=== PATIENT | female | born 1945 | race Caucasian/White ===

== ENCOUNTER → 2021-07-06 10:11 | Outpatient (BNVA) | payer MEDICARE, OTHER, SELFPAY | PROVIDERS: PCP Internal Medicine; Visit Provider Anesthesiology | DX: B02.29 Other postherpetic nervous system involvement (principal); G89.4 Chronic pain syndrome; I12.9 Hypertensive chronic kidney disease with stage 1 through stage 4 chronic kidney disease, or unspecified chronic kidney disease; N18.9 Chronic kidney disease, unspecified; E78.00 Pure hypercholesterolemia, unspecified; I10 Essential (primary) hypertension; E03.9 Hypothyroidism, unspecified; M85.80 Other specified disorders of bone density and structure, unspecified site; Z72.0 Tobacco use | CPT/HCPCS: Q3014 ==

== ENCOUNTER 2022-02-05 15:29 | Outpatient (REF) | payer MEDICARE, OTHER, SELFPAY ==
[2022-02-05 15:45] LABS: MANUAL DIFF FLAG NO
[2022-02-05 16:08] LABS: Basophils Absolute Auto 0.1 X10*3/uL (0.0-0.2); Basophils Percent Auto 1.2 % (0-2); Eosinophils Absolute Auto 0.2 X10*3/uL (0.0-0.4); Eosinophils Percent Auto 3.2 % (0-4); Hematocrit 36.6 % (37.0-47.0); Hemoglobin 11.1 g/dl (12.0-16.0); Imm Gran Abs Auto 0.02 X10*3/uL (0.00-0.03); Imm Gran Pct Auto 0.4 % (0.0-0.4); Lymphocytes Percent Auto 20.6 % (20-40); Mean Corpuscular HGB Conc 30.3 g/dl (31.0-35.0); Mean Corpuscular Hemoglobin 27.2 pg (27.0-33.0); Mean Corpuscular Volume 89.7 fL (80.0-98.0); Mean Platelet Volume 10.5 fL (9.4-12.3); Monocytes Absolute Auto 0.4 X10*3/uL (0.1-1.2); Monocytes Percent Auto 8.8 % (2-11); Neutrophils Absolute Auto 3.3 x10*3/uL (2.0-8.3); Neutrophils Percent Auto 65.8 % (45-73); Platelet Count 230 X10*3/uL (160-400); Red Blood Count 4.08 X10*6/uL (4.20-5.50); Red Cell Distribution Width 15.9 % (11.0-16.0)
[2022-02-05 16:41] LABS: Alanine Aminotransferase 16 U/L (0-31); Albumin Level 4.3 g/dL (3.5-5.0); Alkaline Phosphatase 101 U/L (39-117); Anion Gap 11 (12-20); Aspartate Amino Transferase 19 U/L (5-31); Bilirubin Total 0.3 mg/dL (0.0-1.0); Blood Urea Nitrogen 19 mg/dL (9-16); Calcium 9.7 mg/dL (8.4-10.2); Carbon Dioxide 30 mmol/L (22-29); Chloride 105 mmol/L (96-108); Cholesterol 300 mg/dL; Estimated Glomerular Filt Rate 44; Glucose Random 78 mg/dL (60-115); HDL Cholesterol 93 mg/dL; LDL Cholesterol Calculated 192 mg/dl; Potassium 4.4 mmol/L (3.3-5.1); Sodium 142 mmol/L (135-145); Total Protein 7.6 g/dL (6.5-8.0); Triglycerides 76 mg/dL
[2022-02-05 16:54] LABS: Free T4 (Free Thyroxine) 0.99 ng/dL (0.71-1.85); Thyroid Stimulating Hormone 1.98 uIU/mL (0.32-4.0); Vitamin D 25-OH Total 23.6 ng/mL (>30)
[2022-02-05 17:03] LABS: Folate 16.2 ng/mL (> or = 4.0); Vitamin B12 436 pg/mL (200-900)
== END 2022-02-05 15:30 | disposition home or self-care (01) ==
LOC: HO.LAB 15:29
PROVIDERS: PCP Internal Medicine; Visit Provider Internal Medicine
DX: E03.9 Hypothyroidism, unspecified (principal); E78.00 Pure hypercholesterolemia, unspecified; E55.9 Vitamin D deficiency, unspecified; M81.0 Age-related osteoporosis without current pathological fracture
CPT/HCPCS: 36415; 80053; 80061; 82306; 82607; 82746; 84439; 84443; 85025

== ENCOUNTER 2022-02-24 13:53 | Outpatient (REF) | payer MEDICARE, OTHER, SELFPAY ==
--- NOTE | ~2022-02-24 | MM_ITS ---
EXAMINATION: BONE DENSITOMETRY CLINICAL INDICATION: Age-related osteoporosis without current pathological fracture. COMPARISON: None (current study represents initial baseline exam). TECHNIQUE: Using a LifeBook DXA System (software version: 13.1) manufactured by [employer], dual-energy x-ray absorptiometry was performed of the lumbar spine and right hip. The patient has had a left hip fracture. The images are of good technical quality. Summary results are attached. FINDINGS: AP SPINE L1-L4: BMD 0.684 g/cm2, Z-score -2.0, T-score -4.1, osteoporosis. RIGHT FEMUR, NECK: BMD 0.578 g/cm2, Z-score -1.1, T-score -3.3, osteoporosis. RIGHT FEMUR, TOTAL: BMD 0.548 g/cm2, Z-score -1.6, T-score -3.6, osteoporosis. IDENTIFIED RISK FACTORS: History of adult fracture. Height loss. Anticonvulsant. Hysterectomy. Menopause. HISTORY OF FRACTURE: Femur/hip. MEDICATIONS: Calcium supplement and/or multivitamin. MM/XR DEXA axial skeleton IMPRESSION: 1. DIAGNOSIS: Osteoporosis based on the lowest T-score value of -4.1 in the lumbar spine applying World Health Organization criteria. 2. 10-YEAR FRACTURE RISK PREDICTION, FRAX: According to the guidelines, FRAX calculation should only be performed on patients in the osteopenia bone density category. Therefore, FRAX was not performed on this patient. 3. Treatment Recommendations: NOF guidelines recommend consideration for treatment in postmenopausal women and men age 50 and older presenting with the following: -A hip or vertebral (clinical or morphometric) fracture. -T-score less than or equal to -2.5 at the femoral neck or spine after appropriate evaluation to exclude secondary causes. -Low bone mass at the hip or spine and a 10-year fracture probability by FRAX of greater than or equal to 3% for hip fracture or greater than or equal to 20% for major osteoporotic fracture based on the [place] adapted WHO algorithm. 4. Other Recommendations: All treatment decisions require clinical judgment and consideration of individual patient factors, including patient preferences, comorbidities, previous drug use, risk factors not captured in the FRAX model (e.g. frailty, falls, vitamin D deficiency, increased bone turnover, interval significant decline in bone density) and possible under or overestimation of fracture risk by FRAX. Additional medical evaluation for secondary cause of low bone mineral density may be appropriate. FUTURE SCAN RECOMMENDATION: People with diagnosed cases of osteoporosis or at high risk for fracture should have regular bone mineral density tests. For patients eligible for Medicare, routine testing is allowed once every 2 years. The testing frequency can be increased to one year for patients who have rapidly progressing disease, those who are receiving or discontinuing medical therapy to restore bone mass, or have additional risk factors.
== END 2022-02-24 13:54 | disposition home or self-care (01) ==
LOC: HO.MAMMO 13:53
PROVIDERS: PCP Internal Medicine; Visit Provider Internal Medicine
DX: Z13.820 Encounter for screening for osteoporosis (principal); M81.0 Age-related osteoporosis without current pathological fracture; Z87.891 Personal history of nicotine dependence; Z78.0 Asymptomatic menopausal state
CPT/HCPCS: 77080

== ENCOUNTER 2022-05-14 13:56 | Outpatient (REF) | payer MEDICARE, OTHER, SELFPAY ==
--- NOTE | ~2022-05-14 | CT_ITS ---
EXAMINATION: CT CHEST SCREENING CLINICAL INFORMATION: Former smoker. Quit 4 years ago. 40 pack year history. COMPARISON: None. TECHNIQUE: Multidetector volumetric CT imaging of the chest is performed without contrast using low dose technique. Additional 2D coronal and sagittal reformatted images and axial 3D maximum intensity projection (MIP) images are generated on the CT workstation. This CT examination was performed using dose optimization techniques as appropriate, variously including the following: *Automated exposure control *Adjustment of mA and/or kV according to patient size (this includes techniques or standardized protocols for targeted exams where dose is matched to indication/reason for exam; i.e. extremities or head) *Use of iterative reconstruction technique DLP: 30 mGy-cm FINDINGS: LUNGS: There is biapical pleural and parenchymal scarring. There is evidence of emphysema. There is an ill-defined groundglass attenuation area or clustered areas seen in the left lower lobe. There are several separate adjacent areas. There is a 1 x 1.5 cm area axial image 160 series 5 this extends over a length of 4 cm sagittal reconstructed image 28. There is a 1 cm heterogeneous area with small less than 4 mm solid component sagittal reconstructed image 28 There is a 1 x 1.5 cm heterogeneous area for example sagittal reconstructed image 32. There are numerous small 1 to 2 mm nodules probably related to bronchial soft tissue opacification. No endobronchial or endotracheal lesion is seen. MEDIASTINUM: Coronary artery calcification. The mediastinum is otherwise normal. PLEURA: There is no pleural effusion. No pleural mass or thickening. AXILLA: No lymphadenopathy. UPPER ABDOMEN: Unremarkable OSSEOUS STRUCTURES: There are degenerative changes of the spine. CT/CT lung screening IMPRESSION: Emphysema. Biapical pleural and parenchymal scarring. Clustered groundglass attenuation areas in the left lower lobe. Coronary artery calcification. ASSESSMENT: Lung-RADS category 4A: Suspicious RECOMMENDATION: 3 month low-dose chest CT follow-up recommended.
== END 2022-05-14 13:57 | disposition home or self-care (01) ==
LOC: HO.CT 13:56
PROVIDERS: Visit Provider Physician Assistant Medical
DX: Z12.2 Encounter for screening for malignant neoplasm of respiratory organs (principal); Z87.891 Personal history of nicotine dependence
CPT/HCPCS: 71271; G0296

== ENCOUNTER → 2022-07-14 13:19 | Outpatient (BNVA) | payer MEDICARE, OTHER, SELFPAY | PROVIDERS: PCP Internal Medicine; Visit Provider Anesthesiology | DX: B02.29 Other postherpetic nervous system involvement (principal); G89.4 Chronic pain syndrome | CPT/HCPCS: 99212 ==

== ENCOUNTER 2022-09-15 15:39 | Outpatient (REF) | payer MEDICARE, OTHER, SELFPAY ==
--- NOTE | ~2022-09-15 | CT_ITS ---
EXAMINATION: CT CHEST SCREENING CLINICAL INFORMATION: Follow up multiple ground-glass areas. Smoker. COMPARISON: None. TECHNIQUE: Multidetector volumetric CT imaging of the chest is performed without contrast using low dose technique. Additional 2D coronal and sagittal reformatted images and axial 3D maximum intensity projection (MIP) images are generated on the CT workstation. This CT examination was performed using dose optimization techniques as appropriate, variously including the following: *Automated exposure control *Adjustment of mA and/or kV according to patient size (this includes techniques or standardized protocols for targeted exams where dose is matched to indication/reason for exam; i.e. extremities or head) *Use of iterative reconstruction technique DLP: 46 mGy-cm FINDINGS: LUNGS: Previously seen multiple, ill-defined, ground-glass attenuation areas in the left lower lobe have resolved. There are no pulmonary nodules, mass or consolidation. There is bilateral apical pleural thickening and parenchymal scarring. 2 mm calcified nodule is seen in the left lower lobe axial image 300/6, right middle lobe axial image 320/6, right lower lobe axial image 364/6. No acute pneumonic consolidation is seen. There is centrilobular emphysema. MEDIASTINUM: The thyroid lobes are symmetric and normal. The central trachea and the bronchi are widely patent. The heart size and the great vessels are normal caliber. No abnormal size lymph nodes seen in the mediastinum. Thyroid lobes are symmetrical. CORONARY ARTERY CALCIFICATION: Mild coronary artery calcifications are present. PLEURA: There is no pleural effusion. No pleural mass or thickening. AXILLA: No lymphadenopathy. UPPER ABDOMEN: Visualized liver, spleen, pancreas and bilateral adrenal glands are unremarkable. OSSEOUS STRUCTURES: There is exaggerated thoracic kyphosis and mild scoliosis. No aggressive lytic or sclerotic process is seen. CT/CT lung screen follow up IMPRESSION: 1. Resolution of left lower lobe ground-glass attenuation areas. 2. Small calcified nodules are stable. 3. No abnormal mediastinal or axillary lymphadenopathy. Low-dose annual CT chest. ASSESSMENT: Lung-RADS category 2:Benign. RECOMMENDATION: Low-dose annual CT of the chest.
== END 2022-09-15 15:40 | disposition home or self-care (01) ==
LOC: HO.CT 15:39
PROVIDERS: PCP Internal Medicine; Visit Provider Physician Assistant Medical
DX: Z87.891 Personal history of nicotine dependence (principal)
CPT/HCPCS: 71250

== ENCOUNTER → 2022-10-08 11:01 | Outpatient (BNVA) | payer MEDICARE, OTHER, SELFPAY | PROVIDERS: PCP Internal Medicine; Visit Provider Surgery | DX: R91.8 Other nonspecific abnormal finding of lung field (principal); Z87.891 Personal history of nicotine dependence | CPT/HCPCS: 99202 ==

== ENCOUNTER 2023-03-11 15:43 | Outpatient (REF) | payer MEDICARE, OTHER, SELFPAY ==
--- NOTE | ~2023-03-11 | XR_ITS ---
EXAMINATION: XR SHOULDER, LEFT CLINICAL INFORMATION: Fall one week ago. COMPARISON: None available. TECHNIQUE: Three views of the left shoulder. FINDINGS: There is a transverse comminuted fracture of the distal left clavicle. Fracture approximately 2.5 cm on the distal articular surface of the clavicle. Fracture does not involve the acromioclavicular joint. Fracture is slightly angulated. The glenohumeral joint is normal. XR/XR shoulder LT min 2V IMPRESSION: Transverse comminuted fracture of the distal left clavicle.
[2023-03-11 16:57] LABS: Alanine Aminotransferase 11 U/L (0-31); Albumin Level 4.4 g/dL (3.5-5.0); Alkaline Phosphatase 81 U/L (39-117); Anion Gap 13 (12-20); Aspartate Amino Transferase 18 U/L (5-31); Bilirubin Total 0.4 mg/dL (0.0-1.0); Blood Urea Nitrogen 24 mg/dL (9-16); Calcium 10.5 mg/dL (8.4-10.2); Carbon Dioxide 34 mmol/L (22-29); Chloride 98 mmol/L (96-108); Cholesterol 291 mg/dL; Estimated Glomerular Filt Rate 43; Glucose Random 90 mg/dL (60-115); HDL Cholesterol 98 mg/dL; LDL Cholesterol Calculated 173 mg/dl; Potassium 3.4 mmol/L (3.3-5.1); Sodium 142 mmol/L (135-145); Total Protein 8.2 g/dL (6.5-8.0); Triglycerides 100 mg/dL
[2023-03-11 17:13] LABS: Free T4 (Free Thyroxine) 1.03 ng/dL (0.71-1.85); Thyroid Stimulating Hormone 3.01 uIU/mL (0.32-4.0)
== END 2023-03-11 15:44 | disposition home or self-care (01) ==
LOC: HO.XRAY 15:43
PROVIDERS: PCP Internal Medicine; Visit Provider Internal Medicine
DX: Z13.89 Encounter for screening for other disorder (principal)
CPT/HCPCS: 36415; 73030; 80053; 80061; 84439; 84443

== ENCOUNTER 2023-03-11 16:33 | Emergency (ER) | payer MEDICARE, OTHER, SELFPAY ==
[2023-03-11 16:35] VITALS: BP 112/67; PULSE 75; RESP 18; TEMP 36.6; O2SAT 97; BMI 21.5
--- NOTE | 2023-03-11 17:14 | ED.EXTPRO ---
HPI - Extremity Problem General Chief complaint: Extremity Problem Stated complaint: Referred by doctor Time Seen by Provider: 03/11/23 16:44 History of Present Illness HPI Narrative: patient complains of left shoulder pain for 1 week since a trip and fall where she put out her arm and fell forward hitting her left shoulder and clavicle area on a planting pot, she did not faint and lose consciousness and has no headache no neck pain no numbness no weakness no tingling no loss of muscle strength no dizziness or feeling faint prior no weakness prior Related Data Home Medications Medication Instructions Recorded Confirmed bupropion HCl 300 mg 24 hr tablet, mg PO DAILY 02/15/22 03/11/23 extended release duloxetine 60 mg capsule,delayed mg PO DAILY 02/15/22 03/11/23 release multivitamin 1 tab PO DAILY 02/15/22 03/11/23 quetiapine 25 mg tablet (Seroquel) 25 mg PO BEDTIME 02/15/22 03/11/23 Previous Rx's Medication Instructions Recorded nystatin 100,000 unit/mL oral 1 ml PO TID 7 days #105 mL 02/15/22 suspension gabapentin 300 mg capsule 600 mg PO TID 30 days #180 caps 07/14/22 lidocaine HCl 2 % mucosal solution 1 appl mucous membrane BID PRN 07/15/22 (Lidocaine Viscous) pain #100 mL blood pressure monitor (Blood #1 ea 12/07/22 Pressure Kit) levothyroxine 50 mcg tablet 50 mcg PO DAILY 90 days #90 tabs 12/27/22 hydrochlorothiazide 12.5 mg tablet 12.5 mg PO DAILY #90 tabs 02/16/23 simvastatin 10 mg tablet 10 mg PO BEDTIME #30 tabs 03/11/23 Allergies Allergy/AdvReac Type Severity Reaction Status Date / Time metoclopramide [Reglan] AdvReac Unknown restless Verified 03/11/23 15:02 leg PMFSH Past Medical History Source: nursing notes reviewed Medical History Chronic kidney disease Chronic pain syndrome History of COVID-19 Hypercholesterolemia Hypothyroid Major depression Personal history of nicotine dependence Post herpetic neuralgia Pulmonary nodule Surgical History Colostomy in place (~2007) History of abdominal surgery (~2009) History of hip surgery (~2020) History of hysterectomy (~2005) History of pelvic surgery (~2006) Family History Family History Father No problems noted. Mother No problems noted. Social History Social History Housing: House Alcohol intake: never Patient Tobacco Use Status: Former Tobacco user Quit Date: 2017 Tobacco use type: Cigarette Years Smoked: (onset 31yo, 3/4ppd x 41yrs, 30pyh, quit 2017) e-Cigarette/Vaping Use: Never Used Second Hand Smoke Exposure: No Advance Directives: No Advance Directives Information Provided: No service: No Current occupational status: retired Cognitive needs: No Hearing needs: No Vision needs: Yes Physical Exam Vital Signs: Vital Signs: Last Vital Signs Temp 98 F 03/11/23 16:35 Pulse 75 03/11/23 16:35 Resp 18 03/11/23 16:35 BP 112/67 03/11/23 16:35 Pulse Ox 97 03/11/23 16:35 O2 Del Method Room Air 03/11/23 16:35 BMI result Body Mass Index 21.5 general appearance tearful cooperative no acute distress Head is normocephalic atraumatic Neck is supple nontender Chest wall nontender Extremities the left shoulder the distal clavicle is acutely tender there is no obvious deformity there was no other tenderness around the shoulder chest wall or humerus or elbow, the arm is neurovascular intact distal, full range of motion in elbow wrist and hand, skin was normal no laceration no redness no sign of infection The patient is able to move the left shoulder but it is uncomfortable in the clavicle area Other extremities normal Neuro no focal motor sensory deficits Course Course Course Narrative: x-ray was reviewed and showed a distal clavicle fracture, I did not see any other fracture She is given a sling and will follow with orthopedist Discharge Plan Discharge Clinical Impression: Fracture of left clavicle Patient Disposition: Home, Self-Care Additional Instructions: x-ray showed a broken bone in her clavicle so follow closely with orthopedist Use Tylenol as needed for pain, if you need stronger medication talk to primary care doctor to discuss possible interactions and he will be able to write script for narcotic pain medicine if he feels it is safe Return any time any worse condition or any concerns Prescriptions: No Action levothyroxine 50 mcg tablet 50 mcg PO DAILY 90 Days Qty: 90 0RF hydrochlorothiazide 12.5 mg tablet 12.5 mg PO DAILY Qty: 90 3RF quetiapine [Seroquel] 25 mg tablet 25 mg PO BEDTIME multivitamin Tablet 1 tab PO DAILY nystatin 100,000 unit/mL suspension 1 ml PO TID 7 Days Qty: 105 0RF Rx Instructions: swish and swallow lidocaine HCl [Lidocaine Viscous] 2 % solution 1 appl mucous membrane BID PRN (Reason: pain) Qty: 100 0RF simvastatin 10 mg tablet 10 mg PO BEDTIME Qty: 30 3RF (DME) blood pressure monitor [Blood Pressure Kit] Kit See Rx Instructions .ROUTE .MEDSUPPLY Qty: 1 0RF Rx Instructions: As directed bupropion HCl 300 mg tablet extended release 24 hr PO DAILY duloxetine 60 mg capsule,delayed release(DR/EC) PO DAILY gabapentin 300 mg capsule 600 mg PO TID 30 Days Qty: 180 12RF Referrals: Daniel Jennings MD [Physician] - ( left clavicle fracture)
[2023-03-11 17:23] VITALS: BP 127/69; PULSE 69; RESP 18; TEMP 36.6; O2SAT 99
== END 2023-03-11 17:32 | disposition home or self-care (01) ==
PROVIDERS: Emergency Provider Emergency Medicine Emergency Medical Services; PCP Internal Medicine
DX: S42.032A Displaced fracture of lateral end of left clavicle, initial encounter for closed fracture (principal); W01.198A Fall on same level from slipping, tripping and stumbling with subsequent striking against other object, initial encounter; I10 Essential (primary) hypertension; E78.00 Pure hypercholesterolemia, unspecified; R26.81 Unsteadiness on feet; Z93.3 Colostomy status; Z87.891 Personal history of nicotine dependence; Y93.9 Activity, unspecified; Y92.017 Garden or yard in single-family (private) house as the place of occurrence of the external cause; Y99.9 Unspecified external cause status
CPT/HCPCS: 36415; 73030; 80053; 80061; 84439; 84443; 99284

== ENCOUNTER 2023-03-28 12:05 | Outpatient (REF) | payer MEDICARE, OTHER, SELFPAY | END 2023-03-28 12:06 | disposition home or self-care (01) | LOC: HO.HOSX 12:05 | PROVIDERS: Visit Provider Physician Assistant | DX: Z13.89 Encounter for screening for other disorder (principal) ==

== ENCOUNTER 2023-04-05 10:54 | Outpatient (REF) | payer MEDICARE, OTHER, SELFPAY | END 2023-04-05 10:55 | disposition home or self-care (01) | LOC: HO.HOSX 10:54 | PROVIDERS: Visit Provider Physician Assistant | DX: Z13.89 Encounter for screening for other disorder (principal) ==

== ENCOUNTER 2023-04-13 14:38 | Outpatient (AMB) | payer MEDICARE, OTHER, SELFPAY ==
--- NOTE | 2023-04-13 14:44 | MHC.OFFVIS ---
Intake Vital Signs 04/13/23 14:58 Height 5 ft 4 in Weight 125 lb BMI 21.5 Intake Visit Reasons: FC - left clavicle fx, DOI 03/11/23 Intake Note: Elaine a 77 year old female who presents today for an ER follow up of left clavicle fx. Patient reports a week prior to ER visit on 03/11/23 she put out her arm and fell forward hitting her left shoulder/clavicle area on a planting pot. Currently pain comes with certain movement. Denies numbness or tingling. Limited ROM. Finds little relief with Acetaminophen. Recent fall yesterday while trying to catch her fall she landed on her left hand. She has bruising and pain. Hx of dupuytrens. Patient states a few months ago she had a fall on her right forearm. She states lump never went away and continues to have bruising. Allergies metoclopramide [Reglan] Adverse Reaction (Unknown, Verified 04/13/23 14:59) restless leg HPI FC - left clavicle fx, DOI 03/11/23 HPI Details 77-year-old female who presents to the office today for an ER follow-up of left clavicle injury s/p forward fall and hitting her left shoulder on a planting pot, 03/11/23. She was seen at ER a week after her DOI. She states she has pain and limited ROM in her left clavicle with certain movements. She denies any numbness or tingling. She finds mild relief with acetaminophen. She also reports a recent fall on her left hand yesterday and is now experiencing pain and bruising. She also sustained a fall on her right forearm a few months ago. She continues to have a lump and bruising on her right forearm. She has a history of dupuytrens. [facility], [facility] Medical History Chronic kidney disease Chronic pain syndrome History of COVID-19 Hypercholesterolemia Hypothyroid Major depression Personal history of nicotine dependence Post herpetic neuralgia Pulmonary nodule Surgical History Colostomy in place (~2007) History of abdominal surgery (~2009) History of hip surgery (~2020) History of hysterectomy (~2005) History of pelvic surgery (~2006) Family History Father No problems noted. Mother No problems noted. Social History (Updated 04/13/23 @ 14:52 by STELLA Sheppard) Housing: House Alcohol intake: never Patient Tobacco Use Status: Former Tobacco user Quit Date: 2017 Tobacco use type: Cigarette Years Smoked: (onset 31yo, 3/4ppd x 41yrs, 30pyh, quit 2017) e-Cigarette/Vaping Use: Never Used Second Hand Smoke Exposure: No service: No Current occupational status: retired Current occupation: right hand dominant Cognitive needs: No Hearing needs: No Vision needs: Yes Review of Systems Const All systems reviewed & are unremarkable except as noted in HPI and below Physical Exam Vital Signs: BMI result Body Mass Index 21.5 Extrem Other: Left clavicle: Skin is intact. No skin tenting or skin breakdown. No bony deformity with mild tenderness to palpation over the fracture site. Anterior deltoid sensation is intact. Full ROM of elbow with no pain. No pain along the forearm. Negative squeeze test. No pain along the distal radius. NVI. Left hand normal to inspection, she does have evidence of OA throughout the hand with deviation of all digits. She does have bruising and pain over the dorsum of the hand. No bony deformity. Right forearm hematoma along the ulnar side of the proximal forearm. NVI. Office Procedures Fracture Care Fracture Billing Code: Fracture Billing Code Results Reviewed Results Reviewed: X-rays of the left clavicle obtained in the office today show a non-displaced healing distal clavicle fracture. X-rays of the left hand and right forearm negative for acute fracture or dislocation. Assessment & Plan Assessment & Plan (1) Closed left clavicular fracture: Code(s): S42.002A - Fracture of unspecified part of left clavicle, initial encounter for closed fracture (2) Contusion of left hand: Code(s): S60.222A - Contusion of left hand, initial encounter (3) Traumatic hematoma of right forearm: Code(s): S50.11XA - Contusion of right forearm, initial encounter Plan She will continue to increase activity as tolerated using caution to not overdo any type of overhead reaching or lifting. We will see her back in 6 weeks for the left clavicle with new x-rays, sooner if needed. Based off of radiographical findings there is no evidence of acute fracture or dislocation. It appears that she does have a left-hand contusion from a fall on top of OA. Her right forearm appears to have a hematoma that has solidified. I did encourage warm compresses to the right forearm to see if this helps with her swelling. Orders: Orders XR clavicle LT Today M89.8X1 - Other specified disorders of bone, shoulder Lolita Yang PA-C XR clavicle LT Today M89.8X1 - Other specified disorders of bone, shoulder Angel Luis Cheung PA-C XR forearm RT 2V Today M79.631 - Pain in right forearm Angel Luis Cheung PA-C XR hand LT min 3V Today M79.642 - Pain in left hand Angel Luis Cheung PA-C Patient Instructions: Scribed for Angel Luis Cheung PA-C, by Mehul June medical management trainer, on 04/13/2023 at 2:30 PM EST. IAngel Luis PA-C, have personally reviewed and agree with the information entered by the scribe. Coding Level of Care Code New Pt Level 4 (12596) Diagnoses Closed left clavicular fracture S42.002A Contusion of left hand S60.222A Traumatic hematoma of right forearm S50.11XA CPT Codes Fracture Care - Fracture Billing Code: Fracture Billing Code ([id number])
[2023-04-13 14:58] VITALS: BMI 21.5
== END 2023-04-13 15:22 | disposition home or self-care (01) ==
PROVIDERS: PCP Internal Medicine; Visit Provider Physician Assistant
DX: S42.034D Nondisplaced fracture of lateral end of right clavicle, subsequent encounter for fracture with routine healing (principal); S60.222A Contusion of left hand, initial encounter; S50.11XA Contusion of right forearm, initial encounter
CPT/HCPCS: 99204

== ENCOUNTER 2023-04-13 15:01 | Outpatient (REF) | payer MEDICARE, OTHER, SELFPAY ==
--- NOTE | ~2023-04-13 | XR_ITS ---
EXAMINATION: XR HAND, LEFT CLINICAL INFORMATION: Pain in left hand COMPARISON: None available. TECHNIQUE: PA, lateral, and oblique views of the left hand. FINDINGS: The bones are intact. No fracture. There is ulnar deviation of the second through fifth fingers. Negative ulnar variance. There is degenerative change of carpometacarpal joint of second metacarpal. No erosions or soft tissue calcifications. XR/XR hand LT min 3V IMPRESSION: 1. No acute bony abnormality. 2. Degenerative change of the carpometacarpal joint of the second metacarpal.
--- NOTE | ~2023-04-13 | XR_ITS ---
EXAMINATION: XR CLAVICLE, LEFT CLINICAL INFORMATION: Other specified disorders of bone, shoulder COMPARISON: Left shoulder 03/11/2023 TECHNIQUE: PA and tangential views of the left clavicle. FINDINGS: Again noted is a transverse comminuted fracture with slight angulation of the distal left clavicle. There is no change in position or alignment of the fracture fragments. The fracture cleft is blurred. There is mild callus formation. Acromioclavicular joint alignment is anatomic. XR/XR clavicle LT IMPRESSION: Healing left clavicular fracture.
--- NOTE | ~2023-04-13 | XR_ITS ---
EXAMINATION: XR FOREARM, RIGHT CLINICAL INFORMATION: Pain of right forearm COMPARISON: None available. TECHNIQUE: AP and lateral views of the right forearm were obtained. FINDINGS: The bones are diffusely demineralized. The bones are intact. No fracture. Imaged portions of the elbow and wrist are unremarkable. XR/XR forearm RT 2V IMPRESSION: No acute bony abnormality.
== END 2023-04-13 15:02 | disposition home or self-care (01) ==
LOC: HO.HOSX 15:01
PROVIDERS: Visit Provider Physician Assistant
DX: S42.002A Fracture of unspecified part of left clavicle, initial encounter for closed fracture (principal); S60.222A Contusion of left hand, initial encounter; S50.11XA Contusion of right forearm, initial encounter
CPT/HCPCS: 73000; 73090; 73130; 99202

== ENCOUNTER 2023-05-26 10:49 | Outpatient (REF) | payer MEDICARE, OTHER, SELFPAY | END 2023-05-26 10:50 | disposition home or self-care (01) | LOC: HO.HOSX 10:49 | PROVIDERS: Visit Provider Physician Assistant | DX: Z13.89 Encounter for screening for other disorder (principal) ==

== ENCOUNTER 2023-06-21 15:25 | Outpatient (AMB) | payer MEDICARE, OTHER, SELFPAY ==
[2023-06-21 15:31] VITALS: BP 110/66; PULSE 74; O2SAT 96; BMI 22.8
--- NOTE | 2023-06-21 15:31 | MHC.PC.OV ---
Vital Signs 06/21/23 15:31 Height 5 ft 4 in Weight 133 lb BMI 22.8 BP 110/66 Blood Pressure Location Lt brachial Position Sitting Pulse 74 Pulse Source Pulse Oximeter Pulse Oximetry (%) 96 Oxygen Delivery Method Room Air Intake Visit Reasons: hypothyroid and hypercholesterol Allergies simvastatin Adverse Reaction (Intermediate, Unverified 06/21/23 15:51) Stomach Upset metoclopramide [Reglan] Adverse Reaction (Unknown, Verified 06/21/23 15:35) restless leg Tobacco use date assessed: 12/07/22 Dental Screening Dental Screen Date: 06/21/23 Did you have a dental visit in the last 12 months?: Yes Did you have a dental problem in the last 6 months where you did not have access to dental care?: No Was dental information given to patient?: Patient has dentist HPI hypothyroid and hypercholesterol HPI Details 78-year-old female with a history of hypertension coronary artery disease hypercholesterolemia hypothyroidism and major depression last seen February 2023. Review of the notes had x-rays of left clavicle showing healing left clavicular fracture left hand showing arthritis and right forearm that is unremarkable. Patient did have a fall March 11 sustaining the clavicular fracture. Patient did have blood work in November 2022 then a follow-up in February 2023. Thyroid blood work became normal. showing hypothyroidism and hypercholesterolemia and a gait instability and the arthritis patient had been fill out a handicap placard. Patient does walk with a cane. Patient has a high cholesterol and was placed on simvastatin but patient tells me now that she can take it. [facility]LY [facility] Medical History Chronic kidney disease Chronic pain syndrome History of COVID-19 Hypercholesterolemia Hypothyroid Major depression Personal history of nicotine dependence Post herpetic neuralgia Pulmonary nodule Surgical History Colostomy in place (~2007) History of abdominal surgery (~2009) History of hip surgery (~2020) History of hysterectomy (~2005) History of pelvic surgery (~2006) Family History Father No problems noted. Mother No problems noted. Social History (Updated 04/13/23 @ 14:52 by So F Flo, RMA) Housing: House Alcohol intake: never Patient Tobacco Use Status: Former Tobacco user Quit Date: 2017 Tobacco use type: Cigarette Years Smoked: (onset 31yo, 3/4ppd x 41yrs, 30pyh, quit 2017) e-Cigarette/Vaping Use: Never Used Second Hand Smoke Exposure: No service: No Current occupational status: retired Current occupation: right hand dominant Cognitive needs: No Hearing needs: No Vision needs: Yes Questionnaire PHQ-9 Over the last 2 weeks, how often have you been bothered by any of the following problems? 1. Little interest or pleasure in doing things: not at all 2. Feeling down, depressed, or hopeless: not at all 3. Trouble falling or staying asleep, or sleeping too much: not at all 4. Feeling tired or having little energy: not at all 5. Poor appetite or overeating: not at all 6. Feeling bad about yourself - or that you are a failure or have let yourself or your family down: not at all 7. Trouble concentrating on things, such as reading the newspaper or watching television: not at all 8. Moving or speaking so slowly that other people could have noticed. Or the opposite - being so fidgety or restless that you have been moving around a lot more than usual: not at all 9. Thoughts that you would be better off or of hurting yourself in some way: not at all Total score: 0 Depression Screening Interpretation: Negative Depression Screening Done: Yes Source: Developed by Drs. Pierce Miranda, Cherie Muñiz, Singh Goins and colleagues, with an educational barrington from [employer]. Thrive Questionnaire Date Thrive assessed: 12/07/22 I am a: Patient What is your living situation today?: I have a steady place to live Within the past 12 months, did the food you bought not last and you didn't have the money to get more?: Never true Within the past 12 months, did you worry whether your food would run out before you got money to buy more?: Never true AUDIT C Alcohol Use Questionnaire (AUDIT-C) 1. How often do you have a drink containing alcohol?: Never 3. How often do you have six or more drinks on one occasion?: Never Total Score: 0 MANJU-7 AMB Questionnaire MANJU-7 Date MANJU - 7 assessed: 12/07/22 Feeling nervous, anxious, or on edge: 0 = Not at all Not being able to stop or control worryin = Not at all Worrying too much about different things: 0 = Not at all Trouble relaxin = Not at all Being so restless that it is hard to sit still: 0 = Not at all Becoming easily annoyed or irritable: 0 = Not at all Feeling afraid as if something awful might happen: 0 = Not at all Total MANJU-7 score (0-4 normal; 5-9 mild; 10-14 moderate; 15-21 severe): 0 Source: Developed by Drs. Pierce Miranda, Cherie Muñiz, Singh Goins and colleagues, with an educational barrington from [employer]. Physical exam (Primary Care) Tobacco/Smoking Status: Tobacco use Status Tobacco use date assessed 12/07/22 03/11/23 14:57 Patient Tobacco Use Status Former Tobacco user 04/13/23 14:52 Tobacco use type Cigarette 04/13/23 14:52 e-Cigarette/Vaping Use Never Used 04/13/23 14:52 Depression Screening Interpretation: Negative Thrive Assessment: Date of Thrive Assessment Date Thrive assessed 12/07/22 03/11/23 14:57 Assessment and Plan Assessment & Plan (1) Closed left clavicular fracture: Comment: February 2020 Code(s): S42.002A - Fracture of unspecified part of left clavicle, initial encounter for closed fracture Plan: Patient follows up with orthopedic had another fall recently but no acute fracture (2) Osteoporosis: Code(s): M81.0 - Age-related osteoporosis without current pathological fracture Plan: Discussed about treatment, calcium and vitamin (3) CAD (coronary artery disease): Code(s): I25.10 - Atherosclerotic heart disease of [place] coronary artery without angina pectoris Plan: Control the cholesterol, weight, blood pressure (4) Hypercholesterolemia: Code(s): E78.00 - Pure hypercholesterolemia, unspecified Plan: Avoid fried foods, chicken skin, eggs, butter margarine, pastries and meat. Be it pork or beef they have a lot of cholesterol LDL goal of less than 70 and triglyceride of less than 150 March blood work showing very high LDL. Will start on cholesterol medication (5) Hypothyroid: Code(s): E03.9 - Hypothyroidism, unspecified Qualifiers: Hypothyroidism type: unspecified Qualified Code(s): E03.9 - Hypothyroidism, unspecified Plan: Last blood work was in November showing a very high TSH but February repeat blood test was normal (6) Major depression: Comment: February 2012, Elsa Bean Monthly Code(s): F32.9 - Major depressive disorder, single episode, unspecified Plan: Continue with counseling and therapy Orders: Orders Lipid Panel 3 Months E78.00 - Pure hypercholesterolemia, unspecified Comprehensive Met. Panel 3 Months E78.00 - Pure hypercholesterolemia, unspecified Medications: New rosuvastatin 5 mg PO DAILY 30 tabs 2RF E78.00 - Pure hypercholesterolemia, unspecified Coding Level of Care Code Est Pt Level 4 (03616) Diagnoses Closed left clavicular fracture S42.002A Osteoporosis M81.0 CAD (coronary artery disease) I25.10 Hypercholesterolemia E78.00 Hypothyroidism, unspecified type E03.9 Hypothyroidism type: unspecified Major depression F32.9
== END 2023-06-21 16:04 | disposition home or self-care (01) ==
PROVIDERS: PCP Internal Medicine; Visit Provider Internal Medicine
DX: S42.002A Fracture of unspecified part of left clavicle, initial encounter for closed fracture (principal); M81.0 Age-related osteoporosis without current pathological fracture; I25.10 Atherosclerotic heart disease of native coronary artery without angina pectoris; Z93.3 Colostomy status; E78.00 Pure hypercholesterolemia, unspecified; E03.9 Hypothyroidism, unspecified; F32.9 Major depressive disorder, single episode, unspecified
CPT/HCPCS: 99214

== ENCOUNTER 2023-07-25 14:39 | Outpatient (AMB) | payer MEDICARE, OTHER, SELFPAY ==
--- NOTE | 2023-07-25 14:42 | MHC.OFFVIS ---
Intake Vital Signs 07/25/23 14:49 Height 5 ft 4 in Weight 130 lb BMI 22.3 BP 131/74 Blood Pressure Location Lt brachial Position Sitting Respiration 14 Pulse 79 Pulse Source Pulse Oximeter Pulse Oximetry (%) 97 Oxygen Delivery Method Room Air Intake Visit Reasons: Gabapentin Discussion Allergies simvastatin Adverse Reaction (Intermediate, Verified 07/25/23 14:50) Stomach Upset metoclopramide [Reglan] Adverse Reaction (Unknown, Verified 07/25/23 14:50) restless leg HPI HPI Comments History of Present Illness Details Elaine is back in my office with r requests to restart gabapentin. She was absent for yet another 1 year. She was given refill for 11 months last time. She denies side effects of the gabapentin. She was informed that she can renew her gabapentin next time with primary care physician. This time I will refill her gabapentin with 11 refills. Prior: Original appointment 3 years ago with complains on post herpetic neuralgia.? She complains on pain in lumbar spine spreading into the lateral hip anterior he and in her hip left medial surface of the leg and medial inferior surface of the foot and into the large toe.? She? was treated with multiple medications including Lyrica and antiviral medications.? Valtrex. She did not like Lyrica, she completed the full course of of antiviral medications without any success.? She did not like the Lyrica because of the side effects.? Attempt was made to treat her pain with L2-L3-L3-L4 L4-5 transforaminal epidural steroid injection on the left which did not result in any improvement.? We started her on gabapentin and gabapentin is taking edge of of his her pain.? She is on the telephone today requesting me to renew prescription of gabapentin for her. I offered this patient to consider spinal cord stimulation as the mode of treatment her pain.? She is not interested [facility] Medical History Pulmonary nodule History of COVID-19 Personal history of nicotine dependence Chronic pain syndrome Post herpetic neuralgia Hypothyroid Hypercholesterolemia Chronic kidney disease Major depression Surgical History History of abdominal surgery (~2009) History of hysterectomy (~2005) History of hip surgery (~2020) Colostomy in place (~2007) History of pelvic surgery (~2006) Family History Father No problems noted. Mother No problems noted. Social History Housing: House Alcohol intake: never Patient Tobacco Use Status: Former Tobacco user Quit Date: 2017 Tobacco use type: Cigarette Years Smoked: (onset 31yo, 3/4ppd x 41yrs, 30pyh, quit 2017) e-Cigarette/Vaping Use: Never Used Second Hand Smoke Exposure: No service: No Current occupational status: retired Current occupation: right hand dominant Cognitive needs: No Hearing needs: No Vision needs: Yes Review of Systems Const All systems reviewed & are unremarkable except as noted in HPI and below ENT Reports Normal hearing present Neuro Reports Normal hearing present and Denies Sensory deficit (Neuro) Physical Exam Const General: comfortable and no acute distress Chest Chest palpation & inspection: normal inspection of the chest Resp Effort & Inspection: normal respiratory effort and able to speak in complete sentences Cardio Jugular venous distension: no JVD Neuro Cranial nerves: Yes Normal hearing present Sensory Exam: No Sensory deficit (Neuro) Extrem General: Yes normal to inspection and Yes full ROM Assessment & Plan Assessment & Plan (1) Post herpetic neuralgia: Code(s): B02.29 - Other postherpetic nervous system involvement (2) Chronic pain syndrome: Code(s): G89.4 - Chronic pain syndrome Plan Severe long lasting post herpetic neuralgia gabapentin is helpful for her pain . Spinal cord stimulation [employer] was offered to this patient in the attempt to alleviate her pain. She does not want to. I will continue her gabapentin 600 mg t.i.d. she was taking 2 pills 300 mg 3 times a day with 11 refills. Her primary care physician can refill gabapentin for her next time in 1 year. Medications: Refilled gabapentin 600 mg (2 x 300 mg) PO TID 180 caps 12RF 30 days Coding Level of Care Code Est Pt Level 3 (52912) Diagnoses Post herpetic neuralgia B02.29 Chronic pain syndrome G89.4
[2023-07-25 14:49] VITALS: BP 131/74; PULSE 79; RESP 14; O2SAT 97; BMI 22.3
== END 2023-07-25 14:54 | disposition home or self-care (01) ==
PROVIDERS: PCP Internal Medicine; Visit Provider Anesthesiology
DX: B02.29 Other postherpetic nervous system involvement (principal); G89.4 Chronic pain syndrome
CPT/HCPCS: 99213

== ENCOUNTER → 2023-07-25 14:39 | Outpatient (BNVA) | payer MEDICARE, OTHER, SELFPAY | PROVIDERS: PCP Internal Medicine; Visit Provider Anesthesiology | DX: B02.29 Other postherpetic nervous system involvement (principal); G89.4 Chronic pain syndrome | CPT/HCPCS: 99212 ==

== ENCOUNTER 2023-09-15 14:23 | Outpatient (REF) | payer MEDICARE, OTHER, SELFPAY ==
--- NOTE | ~2023-09-15 | CT_ITS ---
EXAMINATION: CT CHEST SCREENING CLINICAL INFORMATION: Nicotine dependence. 45 pack years. Quit 4 years ago. COMPARISON: CT chest 09/15/2022. TECHNIQUE: Multidetector volumetric CT imaging of the chest is performed without contrast using low dose technique. Additional 2D coronal and sagittal reformatted images and axial 3D maximum intensity projection (MIP) images are generated on the CT workstation. This CT examination was performed using dose optimization techniques as appropriate, variously including the following: *Automated exposure control *Adjustment of mA and/or kV according to patient size (this includes techniques or standardized protocols for targeted exams where dose is matched to indication/reason for exam; i.e. extremities or head) *Use of iterative reconstruction technique DLP: 34 mGy-cm FINDINGS: LUNGS: The lungs are hyperinflated with no pulmonary nodule, mass or ground-glass density seen. No acute pneumonic process seen. MEDIASTINUM: Thyroid lobes are symmetric and normal. The central trachea and bronchi are widely patent. Heart size and the great vessels are normal caliber. No abnormal size mediastinal or hilar lymph nodes seen. CORONARY ARTERY CALCIFICATION: Mild coronary artery calcification is present. PLEURA: There is bilateral apical pleural thickening and parenchymal scarring. AXILLA: No lymphadenopathy. UPPER ABDOMEN: Visualized liver, spleen, pancreas are unremarkable. OSSEOUS STRUCTURES: No aggressive lytic or sclerotic process. CT/CT lung screening IMPRESSION: 1. Hyperinflated lungs with no pulmonary nodule, mass or ground-glass density. 2. Bilateral apical pleural thickening and parenchymal scarring. ASSESSMENT: Lung-RADS category 1: Negative RECOMMENDATION: Low-dose annual CT chest.
== END 2023-09-15 14:24 | disposition home or self-care (01) ==
LOC: HO.CT 14:23
PROVIDERS: PCP Internal Medicine; Visit Provider Physician Assistant Medical
DX: Z12.2 Encounter for screening for malignant neoplasm of respiratory organs (principal); Z87.891 Personal history of nicotine dependence
CPT/HCPCS: 71271

== ENCOUNTER 2024-03-22 13:59 | Outpatient (AMB) | payer MEDICARE, OTHER, SELFPAY ==
[2024-03-22 14:01] VITALS: BP 114/70; PULSE 87; O2SAT 100
--- NOTE | 2024-03-22 14:01 | A.OFFPC_ITS ---
Vital Signs 03/22/24 14:01 Height 5 ft 4 in Weight 116 lb 6.465 oz BMI 20.0 BP 114/70 Blood Pressure Location Rt brachial Position Sitting Pulse 87 Pulse Source Pulse Oximeter Pulse Oximetry (%) 100 Oxygen Delivery Method Room Air Intake Visit Reasons: 7.8 Discharge [facility] Intake Note: Patient is here for hospital discharge follow up. Patient was discharged from [facility] rehab on 03/19/2024 Allergies simvastatin Adverse Reaction (Intermediate, Verified 03/22/24 14:07) Stomach Upset metoclopramide [Reglan] Adverse Reaction (Unknown, Verified 03/22/24 14:07) restless leg Medication List - Last Reconciled 03/22/24 by Augie Mckeon MD blood pressure monitor (Blood Pressure Kit) As directed bupropion HCl 75 mg PO BID duloxetine mg PO DAILY gabapentin 600 mg (2 x 300 mg) PO TID 30 days hydrochlorothiazide 12.5 mg PO DAILY levothyroxine 50 mcg PO DAILY 90 days lidocaine HCl 2% (Lidocaine Viscous) 1 appl mucous membrane BID PRN multivitamin 1 tab PO DAILY nystatin 1 appl topical BID quetiapine (Seroquel) 25 mg PO BEDTIME venlafaxine 50 mg PO BID Tobacco use date assessed: 03/22/24 Fall risk assessment: No Falls in past year Last assessed Fall Risk: 03/22/24 Dental Screening Dental Screen Date: 03/22/24 HPI 7.8 Discharge [facility] HPI Details 78-year-old female with a history of ost eoporosis coronary artery disease hypercholesterolemia hypothyroidism and major depression last seen in June 2023 patient had left clavicular fracture. Patient's last bone density was done in 02/2022 review of the notes has seen pain management in July has gabapentin for post herpetic neuralgia attempts were made for the lumbar transforaminal epidural steroid injections which did not result in any improvement. Offered spinal cord stimulation but declined gabapentin continued on 600 mg 3 times a day patient also had CT scan done of the chest in 10/01/2023 showing bilateral apical pleural thickening and parenchymal scarring with hyperinflated lungs no nodule. Annual CT recommended.. Blood work noted in January anemia to 8.8 and 27.7 hemoglobin hematocrit. WBC of 15 hyponatremia to 131 elevated liver functions to 55 and 48. 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 PAtient brought in papers but no list of med. wants duloxetine in place of effexor- papers for ramp needed also. PAtient has ag tube but is being fed by mouth. PAtient is planned to have radiation and so kept on g tube. went home tuesday and states nothing has been sent up. [facility] Medical History (Updated 03/22/24 @ 14:51 by Augie Mckeon MD) Pulmonary nodule History of COVID-19 Personal history of nicotine dependence Chronic pain syndrome Post herpetic neuralgia Hypothyroid Hypercholesterolemia Chronic kidney disease Major depression Surgical History History of abdominal surgery (~2009) History of hysterectomy (~2005) History of hip surgery (~2020) Colostomy in place (~2007) History of pelvic surgery (~2006) Family History Father No problems noted. Mother No problems noted. Social History Housing: House Alcohol intake: never Patient Tobacco Use Status: Former Tobacco user Tobacco use type: Cigarette Years Smoked: (onset 31yo, 3/4ppd x 41yrs, 30pyh, quit 2017) e-Cigarette/Vaping Use: Never Used Second Hand Smoke Exposure: No service: No Current occupational status: retired Current occupation: right hand dominant Cognitive needs: No Hearing needs: No Vision needs: Yes Questionnaire Thrive Questionnaire Date Thrive assessed: 12/07/22 AUDIT C Alcohol Use Questionnaire (AUDIT-C) 1. How often do you have a drink containing alcohol?: Never 3. How often do you have six or more drinks on one occasion?: Never Total Score: 0 MANJU-7 AMB Questionnaire MANJU-7 Date MANJU - 7 assessed: 12/07/22 Source: Developed by Drs. Pierce Miranda, Cherie Muñiz, Singh Goins and colleagues, with an educational barrington from [employer]. Physical exam (Primary Care) Vital Signs: Last Vital Signs Pulse 87 03/22/24 14:01 BP 114/70 03/22/24 14:01 Pulse Ox 100 03/22/24 14:01 Oxygen Delivery Method Room Air 03/22/24 14:01 BMI result Body Mass Index 20.0 Tobacco/Smoking Status: Tobacco use Status Tobacco use date assessed 03/22/24 03/22/24 14:10 Patient Tobacco Use Status Former Tobacco user 03/22/24 14:01 Tobacco use type Cigarette 03/22/24 14:01 e-Cigarette/Vaping Use Never Used 03/22/24 14:01 Thrive Assessment: Date of Thrive Assessment Date Thrive assessed 12/07/22 03/22/24 14:01 Const Other: incisional scar r angle of the mouth mild redness, L leg weakness , Tongue cannot protrude out with whitish lesion l side General: alert; No acute distress Eyes Conjunctivae: conjunctivae normal Resp Auscultation: clear to auscultation bilaterally Cardio Rate: regular rate Rhythm: regular rhythm Extrem General: Yes normal to inspection and No edema Assessment and Plan Assessment & Plan (1) Tongue cancer: Comment: January 2024invasive moderately differentiated squamous cell carcinoma with ulceration suggestive HPV association status post glossectomy with neck flap Code(s): C02.9 - Malignant neoplasm of tongue, unspecified Plan: Patient continues to follow-up with Hematology-Oncology (2) CAD (coronary artery disease): Code(s): I25.10 - Atherosclerotic heart disease of [place] coronary artery without angina pectoris Plan: Control the cholesterol, weight, blood pressure (3) Colostomy in place: Onset Date: ~2007 Comment: (Dr. Teri Mcginnis - from fecal impaction - 2007) Code(s): Z93.3 - Colostomy status (4) Hypothyroid: Code(s): E03.9 - Hypothyroidism, unspecified Qualifiers: Hypothyroidism type: unspecified Qualified Code(s): E03.9 - Hypothyroidism, unspecified Plan: Continue with thyroid medication (5) Major depression: Comment: February 2012, Elsa Bean Monthly Code(s): F32.9 - Major depressive disorder, single episode, unspecified Plan: On duloxetine and bupropion continue with counseling and therapy (6) Post herpetic neuralgia: Code(s): B02.29 - Other postherpetic nervous system involvement Plan: Continue with gabapentin (7) Gastrojejunal tube present: Code(s): Z93.1 - Gastrostomy status Orders: Orders Comprehensive Met. Panel Today I25.10 - Atherosclerotic heart disease of [place] coronary artery without angina pectoris Vitamin B12 and Folate Today I25.10 - Atherosclerotic heart disease of [place] coronary artery without angina pectoris Vitamin D 25-OH Total Today I25.10 - Atherosclerotic heart disease of [place] coronary artery without angina pectoris Complete Blood Count Auto Diff Today I25.10 - Atherosclerotic heart disease of [place] coronary artery without angina pectoris Free T4 (Free Thyroxine) Today I25.10 - Atherosclerotic heart disease of [place] coronary artery without angina pectoris Thyroid Stimulating Hormone Today I25.10 - Atherosclerotic heart disease of [place] coronary artery without angina pectoris Lipid Panel Today E78.00 - Pure hypercholesterolemia, unspecified, I25.10 - Atherosclerotic heart disease of [place] coronary artery without angina pectoris Medications: New transparent dressings (Tegaderm Frame Style) As directed 100 ea 1RF Z93.1 - Gastrostomy status Changed From duloxetine PO DAILY F32.9 - Major depressive disorder, single episode, unspecified To duloxetine 60 mg PO DAILY 30 days 30 caps 3RF F32.9 - Major depressive disorder, single episode, unspecified Coding Level of Care Code Est Pt Level 4 (63878) Diagnoses Tongue cancer C02.9 CAD (coronary artery disease) I25.[address] Z93.3 Hypothyroidism, unspecified type E03.9 Hypothyroidism type: unspecified Major depression F32.9 Post herpetic neuralgia B02.29 Gastrojejunal tube present Z93.1
== END 2024-03-22 15:07 | disposition home or self-care (01) ==
PROVIDERS: PCP Internal Medicine; Visit Provider Internal Medicine
DX: C02.9 Malignant neoplasm of tongue, unspecified (principal); Z93.3 Colostomy status; Z93.1 Gastrostomy status; F32.9 Major depressive disorder, single episode, unspecified; I25.10 Atherosclerotic heart disease of native coronary artery without angina pectoris; E03.9 Hypothyroidism, unspecified; B02.29 Other postherpetic nervous system involvement
CPT/HCPCS: 99214

== ENCOUNTER 2024-08-03 15:54 | Outpatient (AMB) | payer MEDICARE, OTHER, SELFPAY ==
[2024-08-03 15:55] VITALS: BP 130/82; PULSE 68; O2SAT 97; BMI 22.1
--- NOTE | 2024-08-03 15:55 | MHC.PC.OV ---
Vital Signs 08/03/24 15:55 Height 5 ft 4 in Weight 129 lb 0.4 oz BMI 22.1 BP 130/82 Blood Pressure Location Lt brachial Position Sitting Pulse 68 Pulse Source Pulse Oximeter Pulse Oximetry (%) 97 Oxygen Delivery Method Room Air Intake Visit Reasons: extreme tiredness Allergies simvastatin Adverse Reaction (Intermediate, Verified 08/03/24 15:55) Stomach Upset metoclopramide [Reglan] Adverse Reaction (Unknown, Verified 08/03/24 15:55) restless leg Medication List - Last Reconciled 08/03/24 by Augie Mckeon MD blood pressure monitor (Blood Pressure Kit) As directed duloxetine 60 mg PO DAILY 30 days [FINGER SPLINTS 3rd, 4th and 5th flexion contractures] gabapentin 600 mg (2 x 300 mg) PO TID 30 days hydroxyzine HCl 25 mg PO BEDTIME levothyroxine 50 mcg PO DAILY 90 days lidocaine HCl 2% (Lidocaine Viscous) 1 appl mucous membrane BID PRN nystatin 1 appl topical BID nystatin 5 mL PO TID 7 days transparent dressings (Tegaderm Frame Style) As directed Tobacco use date assessed: 03/22/24 Fall risk assessment: No Falls in past year Last assessed Fall Risk: 08/03/24 Dental Screening Dental Screen Date: 03/22/24 HPI extreme tiredness HPI Details 79-year-old female with a history of tongue cancer status post right partial glossectomy treatment, coronary artery disease hypothyroidism major depression with G-tube present and colostomy in place. Coming in for follow-up. Last seen in 03/31/2024. Review of the notes in June. [facility]. Patient comes in feeling very weak. Patient is eating by mouth pureed diet but has the boost and ensure. still has the colostomy. feels tired and sleepy. Patient also complains of a lot leg pain on the left side with the shingles developed a post herpetic neuralgia. Patient has been going to the pain management and has recommended a procedure in which the patient declined. Patient has been sent to me to refill the gabapentin. Patient also has the depression problem that they have mentioned that it is not working. Patient is being followed up by psychiatrist. Discussed that with the Cymbalta if it is not working would like to take that off but Cymbalta helps with pain, post herpetic neuralgia and depression. Discussed that we can take it off if it is not helping but would rather have the psychiatrist take care of the depression part. Advised continue with medication. As for the pain post herpetic neuralgia discussed that gabapentin is helpful and that she has tried pregabalin before which did not help. Discussed that we can decrease the gabapentin in the morning to 300 mg noon time 300 mg and at nighttime 600 mg to try to see if that helps her with her sleepiness during the daytime. As for pain management discussed that this would be a better help if the pain is not getting under control but she has to understand that in reality we would never get rid of the pain but would get it manage only. As for the tiredness all day long advised to get blood work as the last blood work that I had was in January showing severe anemia. [facility] [place] Medical History (Updated 08/03/24 @ 16:47 by Augie Mckeon MD) Pulmonary nodule History of COVID-19 Personal history of nicotine dependence Chronic pain syndrome Post herpetic neuralgia Hypothyroid Hypercholesterolemia Chronic kidney disease Major depression Surgical History History of abdominal surgery (~2009) History of hysterectomy (~2005) History of hip surgery (~2020) Colostomy in place (~2007) History of pelvic surgery (~2006) Family History Father No problems noted. Mother No problems noted. Social History Housing: House Alcohol intake: never Patient Tobacco Use Status: Former Tobacco user Tobacco use type: Cigarette Years Smoked: (onset 31yo, 3/4ppd x 41yrs, 30pyh, quit 2018) e-Cigarette/Vaping Use: Never Used Second Hand Smoke Exposure: No service: No Current occupational status: retired Current occupation: right hand dominant Cognitive needs: No Hearing needs: No Vision needs: Yes Questionnaire Thrive Questionnaire Date Thrive assessed: 12/07/22 AUDIT C Alcohol Use Questionnaire (AUDIT-C) 1. How often do you have a drink containing alcohol?: Never 3. How often do you have six or more drinks on one occasion?: Never Total Score: 0 MANJU-7 AMB Questionnaire MANJU-7 Date MANJU - 7 assessed: 12/07/22 Source: Developed by Drs. Pierce Miranda, Cherie Muñiz, Singh Goins and colleagues, with an educational barrington from [employer]. Physical exam (Primary Care) Vital Signs: Last Vital Signs Pulse 68 08/03/24 15:55 BP 130/82 08/03/24 15:55 Pulse Ox 97 08/03/24 15:55 Oxygen Delivery Method Room Air 08/03/24 15:55 BMI result Body Mass Index 22.1 Tobacco/Smoking Status: Tobacco use Status Tobacco use date assessed 03/22/24 08/03/24 16:11 Patient Tobacco Use Status Former Tobacco user 08/03/24 16:11 Tobacco use type Cigarette 08/03/24 16:11 e-Cigarette/Vaping Use Never Used 08/03/24 16:11 Thrive Assessment: Date of Thrive Assessment Date Thrive assessed 12/07/22 08/03/24 16:11 Const General: alert; No acute distress Eyes Conjunctivae: conjunctivae normal Resp Auscultation: clear to auscultation bilaterally Cardio Rate: regular rate Rhythm: regular rhythm GI Inspection: Yes normal to inspection Extrem General: Yes normal to inspection and No edema Coding Level of Care Code Est Pt Level 4 (18745) Diagnoses Tongue cancer C02.9 Gastrojejunal tube present Z93.1 Primary hypertension I10 Hypertension type: primary hypertension Coronary artery disease involving [place] coronary artery of [place] heart without angina pectoris I25.10 Coronary Disease-Associated Artery/Lesion type: [place] artery [place] vs. 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 (2) Gastrojejunal tube present: Code(s): Z93.1 - Gastrostomy status Category: Medical Plan: Patient is eating by mouth with ground food but supplements with ensure/boost (3) Hypertension: Code(s): I10 - Essential (primary) hypertension Category: Medical Qualifiers: Hypertension type: primary hypertension Qualified Code(s): I10 - Essential (primary) hypertension Plan: Continue with blood pressure medication. Decrease salt intake and exercise on hydrochlorothiazide 12.5 mg once a day (4) CAD (coronary artery disease): Code(s): I25.10 - Atherosclerotic heart disease of [place] coronary artery without angina pectoris Category: Medical Qualifiers: Coronary Disease-Associated Artery/Lesion type: [place] artery [place] vs. transplanted heart: [place] heart Associated angina: without angina Qualified Code(s): I25.10 - Atherosclerotic heart disease of [place] coronary artery without angina pectoris Plan: Control the cholesterol, weight, blood pressure, diabetes (5) Hypercholesterolemia: Code(s): E78.00 - Pure hypercholesterolemia, unspecified Category: Medical Plan: Avoid fried foods, chicken skin, eggs, butter margarine, pastries and meat. Be it pork or beef they have a lot of cholesterol (6) Hypothyroid: Code(s): E03.9 - Hypothyroidism, unspecified Category: Medical Qualifiers: Hypothyroidism type: unspecified Qualified Code(s): E03.9 - Hypothyroidism, unspecified Plan: Continue with thyroid medication but will need blood testing (7) Post herpetic neuralgia: Code(s): B02.29 - Other postherpetic nervous system involvement Category: Medical Plan: Presently on gabapentin and advised to decrease the morning and noon time and continue with 600 mg at bedtime. Advised follow-up with pain management. (8) Major depression: Comment: February 2012, Elsa Bean Monthly Code(s): F32.9 - Major depressive disorder, single episode, unspecified Category: Medical Qualifiers: Major depression recurrence: recurrent Active/Remission status: currently active Major depression episode severity: moderate Qualified Code(s): F33.1 - Major depressive disorder, recurrent, moderate Plan: Patient is advised strongly to follow-up with psychiatry for counseling and therapy Orders: Orders Complete Blood Count Auto Diff Today I25.10 - Atherosclerotic heart disease of [place] coronary artery without angina pectoris Reticulocyte Count Today I25.10 - Atherosclerotic heart disease of [place] coronary artery without angina pectoris Vitamin B12 and Folate Today I25.10 - Atherosclerotic heart disease of [place] coronary artery without angina pectoris Vitamin D 25-OH Total Today I25.10 - Atherosclerotic heart disease of [place] coronary artery without angina pectoris Free T4 (Free Thyroxine) Today I25.10 - Atherosclerotic heart disease of [place] coronary artery without angina pectoris UA CC w/rflx Micro + Cult Today I25.10 - Atherosclerotic heart disease of [place] coronary artery without angina pectoris, R30.0 - Dysuria Comprehensive Met. Panel Today I25.10 - Atherosclerotic heart disease of [place] coronary artery without angina pectoris Ferritin Today I25.10 - Atherosclerotic heart disease of [place] coronary artery without angina pectoris IRON PROFILE Today I25.10 - Atherosclerotic heart disease of [place] coronary artery without angina pectoris Thyroid Stimulating Hormone Today I25.10 - Atherosclerotic heart disease of [place] coronary artery without angina pectoris Lipid Panel Today E78.00 - Pure hypercholesterolemia, unspecified, I25.10 - Atherosclerotic heart disease of [place] coronary artery without angina pectoris Magnesium Today I25.10 - Atherosclerotic heart disease of [place] coronary artery without angina pectoris Medications: Refilled gabapentin 600 mg (2 x 300 mg) PO TID 30 days 180 caps 12RF I25.10 - Atherosclerotic heart disease of [place] coronary artery without angina pectoris Discontinued hydrochlorothiazide Discontinued Reason: Change Referral Type 12.5 mg PO DAILY 90 tabs 3RF I10 - Essential (primary) hypertension
== END 2024-08-03 16:45 | disposition home or self-care (01) ==
PROVIDERS: PCP Internal Medicine; Visit Provider Internal Medicine
DX: I10 Essential (primary) hypertension (principal); C02.9 Malignant neoplasm of tongue, unspecified; F33.1 Major depressive disorder, recurrent, moderate; Z93.1 Gastrostomy status; I25.10 Atherosclerotic heart disease of native coronary artery without angina pectoris; E78.00 Pure hypercholesterolemia, unspecified; E03.9 Hypothyroidism, unspecified; B02.29 Other postherpetic nervous system involvement

== ENCOUNTER → 2024-08-03 15:54 | Outpatient (BNVA) | payer MEDICARE, OTHER, SELFPAY | PROVIDERS: PCP Internal Medicine; Visit Provider Internal Medicine | DX: C02.9 Malignant neoplasm of tongue, unspecified (principal); Z93.1 Gastrostomy status; I10 Essential (primary) hypertension; I25.10 Atherosclerotic heart disease of native coronary artery without angina pectoris; E78.00 Pure hypercholesterolemia, unspecified; E03.9 Hypothyroidism, unspecified; B02.29 Other postherpetic nervous system involvement; F33.1 Major depressive disorder, recurrent, moderate | CPT/HCPCS: 99212 ==

== ENCOUNTER 2024-08-14 12:25 | Outpatient (REF) | payer MEDICARE, OTHER, SELFPAY ==
[2024-08-14 12:42] LABS: MANUAL DIFF FLAG NO
[2024-08-14 14:10] LABS: Eosinophils Absolute Auto 0.2 X10*3/uL (0.0-0.4); Eosinophils Percent Auto 5.2 % (0-4); Hematocrit 42.1 % (37.0-47.0); Hemoglobin 13.4 g/dl (12.0-16.0); Imm Gran Abs Auto 0.01 X10*3/uL (0.00-0.03); Imm Gran Pct Auto 0.2 % (0.0-0.4); Lymphocytes Absolute Auto 0.7 X10*3/uL (1.2-4.9); Lymphocytes Percent Auto 16.2 % (20-40); Mean Corpuscular HGB Conc 31.8 g/dl (31.0-35.0); Mean Corpuscular Hemoglobin 28.3 pg (27.0-33.0); Mean Corpuscular Volume 88.8 fL (80.0-98.0); Mean Platelet Volume 9.9 fL (9.4-12.3); Monocytes Absolute Auto 0.6 X10*3/uL (0.1-1.2); Monocytes Percent Auto 14.4 % (2-11); Neutrophils Absolute Auto 2.5 x10*3/uL (2.0-8.3); Platelet Count 194 X10*3/uL (160-400); Red Blood Count 4.74 X10*6/uL (4.20-5.50); Red Cell Distribution Width 16.8 % (11.0-16.0); Retic HGB Equivalent 32.9 pg (30.0-35.0); Reticulocyte Percent 0.9 % (0.5-1.8); Reticulocytes Absolute 0.042 X10*6/uL (0.026-0.095)
[2024-08-14 15:08] LABS: Folate 15.3 ng/mL (> or = 4.0); Vitamin B12 1710 pg/mL (200-900)
[2024-08-14 15:17] LABS: Alanine Aminotransferase 37 U/L (0-31); Albumin Level 4.3 g/dL (3.5-5.0); Alkaline Phosphatase 73 U/L (39-117); Anion Gap 10 (12-20); Aspartate Amino Transferase 29 U/L (5-31); Bilirubin Total 0.4 mg/dL (0.0-1.0); Blood Urea Nitrogen 36 mg/dL (9-16); Carbon Dioxide 30 mmol/L (22-29); Chloride 104 mmol/L (96-108); Cholesterol 241 mg/dL (<200); Estimated Glomerular Filt Rate 50; Glucose Random 80 mg/dL (60-115); HDL Cholesterol 67 mg/dL (>40); Iron 63 mcg/dL (30-160); LDL Cholesterol Calculated 149 mg/dL (<100); Magnesium 2.3 mg/dL (1.6-2.6); Percent Iron Saturation 20 % (15-50); Potassium 4.3 mmol/L (3.3-5.1); Sodium 140 mmol/L (135-145); Total Iron Binding Capacity 312 mcg/dL (228-428); Total Protein 8.1 g/dL (6.5-8.0); Triglycerides 127 mg/dL (<150); Unsaturated Iron Binding 249 ug/dL
[2024-08-14 15:35] LABS: Ferritin 35 ng/mL (10-250); Thyroid Stimulating Hormone 8.02 uIU/mL (0.32-4.0); Vitamin D 25-OH Total 44.9 ng/mL (>30)
== END 2024-08-14 12:26 | disposition home or self-care (01) ==
LOC: HO.LAB 12:25
PROVIDERS: PCP Internal Medicine; Visit Provider Internal Medicine
DX: E78.00 Pure hypercholesterolemia, unspecified (principal); I25.10 Atherosclerotic heart disease of native coronary artery without angina pectoris
CPT/HCPCS: 36415; 80053; 80061; 82306; 82607; 82728; 82746; 83540; 83735; 84439; 84443; 85025; 85045

== ENCOUNTER 2024-10-05 13:17 | Outpatient (REF) | payer MEDICARE, OTHER, SELFPAY ==
--- OUTSIDE RECORDS SUMMARY | 2024-10-05 15:03 | XMS_ITS | Data Portability ---
Author Organization [facility], Main Office Address [address], [address] [place] [address] Care Team Providers Care Plush Cutter Name Role Phone MAMIE PURVIS ([place]) OTHER PO, ROSEANNE Primary Care Provider Assessment No assessment recorded. Plan of Treatment Reminders Order Date Submit Date Provider Last Modified By Organization Details Last Modified Time Details Appointments None record ed. Lab None record ed. Referral None record ed. Procedures None record ed. Surgeries None record ed. Imaging None record ed. Medication Orders None record ed. Patient TargetsNo targets recorded. Patient InstructionsNo instructions recorded. Reason for Referral None Reported. Problems Name Problem SNOMED Code Status Onset Date Resolution Date Notes Provider Name and Address Organization Details Recorded Time Fracture of neck of femur 7664801 Active 2020 ANDREY [address] , [address], [place], [address], [facility] 12:20:38 Insomnia 790656708 Active [address], [address], [place], [address], [facility] 12:47:41 Vitamin D deficiency 85102134 Active 2020 Christy Dunham MD [address] , [address], [place], [address], [facility] 23:15:44 Secondary hyperparathyro idism 69887411 Active 2020 Christy Dunham MD [address] , [address], [place], [address], [facility] 23:17:11 Squamous cell carcinoma of tongue 504079320 Active 2023 JUWAN GAMBINO [address], [address], [place], [address], [facility] 4 10:11:18 Obstipation 868915600 Active 2023 JUWAN GAMBINO [address], [address], [place], [address], [facility] 4 10:11:40 Chronic kidney disease stage 3 896171083 Active 2018 Karli Kristina [address] [place] [address], [address], [place], [address], [facility] 9 14:54:04 Depressive disorder 94778247 Active [address], [address], [place], [address], [facility] 9 14:54:11 Herpes zoster 1642855 Active [address], [address], [place], [address], [facility] 9 14:54:30 Post-herpetic polyneuropathy 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 Procedures Surgical History Date Name Laterality Status Provider Name and Address Organization Details Recorded Time Colostomy completed Roger Antonio MD [address], [address], [place], [address], [facility] 01/31/2019 12:22:37 Imaging Results None recorded. Procedure Notes None recorded. Medical Equipment None Reported. Allergies Allergen ID Allergen Name Allergen Category Reaction Reaction Severity Criticality Documentation Date Start Date Code Code System Note Provider Name and Address Organization Details Recorded Time [id number] Reglan medicatio n Not available Not available Not available 01/30/2021 9230 RxNorm Not Available Not Available Not Available Medications Name Sig Start Date Stop Date Status Note LastModified by Organization Details LastModified Time Dilaudid 2 mg tablet 1-2 tabs PO q 6 hours PRN pain 024 active Not Available Not Available Not Avai lable Vitals None Recorded Social History Question Answer Notes LastModified by Organizat ion Details LastModified Time Tobacco Smoking Status Former Smoker Not Available [facility] 07/08/2020 03:13:19 Do You Have An Advance Directive? No Full Code [id number] Information not available 07/08/2020 Do You Have A Medical Power Of Litigation Coordinator? Yes [id number] Information not available 07/08/2020 What Was The Date Of Your Most Recent Tobacco Screening? 02/08/2019 [id number] Information not available 07/08/2020 Sex: Unknown Functional Status None recorded. Mental Status None recorded. Family History Relationship Description Onset Age of this Age Resolved Age Notes LastModified by Organization Details LastModified Time Father No current problems or disability [email or web address] Not available 12:21:30 Mother No current problems or disability [place] Not available 12:21:30 Notes:n/c Medical History No medical history recorded. Gynecological HistoryNo gynecological history recorded. Obstetrics History GPAL:G 0 P 0 0 0 0 Immunizations Vaccine Type Date Status Note Provider Nam e and Address Organization Details Recorded Time Td(adult) unspecified formulation 9 completed Feli Sharan [facility] 01/26/2024 15:03:40 Pneumococcal conjugate PCV20, polysaccharide ALP932 conjugate, adjuvant, PF 3 completed Feli Sharan [facility] 01/26/2024 15:08:33 pneumococcal polysaccharide PPV23 9 completed Feli Sharan [facility] 01/26/2024 15:09:24 SARS-COV-2 (COVID-19) vaccine, UNSPECIFIED 1 completed Feli Tsang [facility] 01/26/2024 15:09:41 SARS-COV-2 (COVID-19) vaccine, UNSPECIFIED 1 completed Feli Tsang [facility] 01/26/2024 15:09:49 SARS-COV-2 (COVID-19) vaccine, UNSPECIFIED 2 [facility] 15:09:56 Past Encounters Encounter ID Performer Location Encounter Start Date Encounter Closed Date Diagnosis/Indication Diagnosis SNOMED-CT Code Diagnosis ICD10 Code Diagnosis Note [id number] Karli Kristina PURVIS [address] [place] [address] 01/26/2019 14:42:50 01/31/2019 10:26:47 Depressive disorder 99370581 F32.89 wellbutrin cymbaltalo razepam prnmonitor mood and behaviors. NEG prn. Chronic ki dney disease stage 3 687474617 N18.3 stable, current creat 1. avoid nephrotoxi c meds if able. monitor labs. Herpes zoster 0697322 B0 2.9 see HPInot on prophylaxi s. pt states this is her first outbreak. monitor Post-herpe tic polyneuropathy 43423758 B02.23 see HPIamitrip tyline 10 mggabapent in 300 mg BIDoxycodo ne 5 mg prnmonitor pain control,ti trate gabapentin and TCA prn with the goal of weaning off oxycodone. colace for bowel management ,monitorpt with unsteady gait due to pain. PT OT to maximize function and reduce fals risk. Hypothyroidism 04929759 E03.9 [place] [id number] MD MAMIE Valverde [address] [place] [address] 01/30/2019 10:31:37 02/06/2019 09:27:01 Post-herpetic polyneuropathy 80994771 B02.23 see HPIamitrip tyline 10 mg q hsgabapent in 300 mg BIDoxycodo ne 5 mg q 4 hours prnlidoder m patch dailycolac e for bowel management Difficulty ambulating 2/2 pain, stable on current regimenMon itor and minimize oxycodone use Depressive disorder 3548 9007 F32.89 wellbutrin ER 300mg dailycymba lta 60mg dailyloraz epam 0.5mg q 8 hours prn, normally is on xanax at home but we are holding this Herpes zoster 8616000 B0 2.9 see HPI Chronic ki dney disease stage 3 416753205 N18.3 stable, current creat 1. avoid nephrotoxi c meds if able. monitor labs. Hypothyroidism 72188819 E03.9 Synthroid 75mcg daily [id number] ANDREY PURVIS [address] [place] [address] 02/08/2019 08:43:30 02/13/2019 11:22:17 Post-herpetic polyneuropathy 18429715 B02.23 see HPIamitrip tyline 10 mg q hsIncrease gabapentin to 300 mg TID from BID dosing, monitor for increased sedationox ycodone 5 mg q 6 hours prn- would like goal to be to taper off thislidode rm patch dailycolac e for bowel management Difficulty ambulating 2/2 pain, uses walker and wheelchair when neededcont inue PT with VNA at homefollow up with PCP about pain Depressive disorder 3548 9007 F32.89 wellbutrin ER 300 mg dailycymba lta 60 mg dailyloraz epam 0.5 mg q 8 hours prn Herpes zoster 9820510 B0 2.9 see HPI Chronic ki dney disease stage 3 915671802 N18.3 stable, current creat 1. avoid nephrotoxi c meds if able. monitor labs. Hypothyroidism 75611272 E03.8 Synthroid 75 mcg daily [id number] ANDREY PURVIS [address] [place] [address] 01/30/2021 12:03:43 02/02/2021 15:50:15 Post-herpetic polyneuropathy 19177166 B02.23 gabapentin 900 mg BID oxycodone 5 mg q 6 hours prn- would like goal to be to taper off this monitor pain Chronic ki dney disease stage 3 922180339 N18.30 stable, current creat 1. avoid nephrotoxi c meds if able. monitor labs. Hypothyroidism 98862982 E03.8 Synthroid 75 mcg daily monitor TSH as needed Fracture o f neck of femur 7990170 S72.002A see HPI had been at another rehab and moved here PT/OT eval and treat oxycodone 2.5-5 mg q 4 hours PRN monitor pain control APAP as needed Depressive disorder 3548 9007 F32.89 wellbutrin ER 300 mg daily cymbalta 60 mg daily Insomnia 745091004 F51.0 9 add melatonin 5 mg qhs [id number] MD MAMIE Gonzalez [address] [place] [address] 02/02/2021 12:03:47 02/11/2021 12:16:13 Fracture of neck of femur 3611745 S72.002A Recovering from ORIF. Needs PT/OT for strengthen ing, balance, gait training, safety and function. Continue oxycodone 2.5-5 mg q 4 hours prn and APAP 650 mg q 6 hrs prn. Monitor pain control and function. F/U with ortho as planned. Post-herpe tic polyneuropathy 81877185 B02.23 With increased pain since surgery. Will add midday dose of gabapentin 300 mg to 900 mg BID already ordered. Continue oxy as above. Monitor pain. Chronic ki dney disease stage 3 457371024 N18.31 Back into nl. range. Continue to avoid nephrotoxi c meds as able. Monitor labs. Renal consult prn. Hypothyroidism 71023916 E03.8 TSH elevated inpt. Continue levothyrox ine 75 mcg qd for now. Recheck TSH and free T4 with next routine labs. Depressive disorder 1666 4587 F32.89 With lots of life stress currently. Psych consulted. Continue wellbutrin ER 300 mg qd and cymbalta 60 mg qd. Monitor mood. Insomnia 658863796 F51.0 9 Continue melatonin 5 mg qhs Monitor sleep patterns. Vitamin D deficiency 347 74608 E56.8 Vitamin D low inpt. Forgot to add supplement when seen. Will add at next visit. Secondary hyperparathyroidism 50942538 E21.1 Elevated PTH, likely due to low vitamin D. Recheck when vitamin D corrected. [id number] ANDREY PURVIS [address] [place] [address] 02/06/2021 10:08:36 02/11/2021 13:54:01 Fracture of neck of femur 9993565 S72.002A improving PT/OT to continue, will skip today to be with family oxycodone 2.5-5 mg q 4 hours PRN- still taking, will attempt to taper next week monitor pain control APAP as needed Post-herpe tic polyneuropathy 49457537 B02.23 gabapentin 900 mg BID monitor pain Mixed anxi ety and depressive disorder 993248496 F41.8 add xanax 1 mg daily prn taper off next week [id number] ANDREY [address] [place] [address] 02/11/2021 12:34:02 02/18/2021 15:20:36 Fracture of neck of femur 6560158 S72.002A improving PT/OT to continue change oxycodone to 2.5-5 mg q 6 hours PRN-would like to taper off soon as she is 2 weeks out from surgery APAP as needed Mixed anxi ety and depressive disorder 893491429 F41.8 dc xanax, not using Dysuria 38236203 R30.9 add clean catch urine now [id number] ANDREY [place] [address] 02/13/2021 10:29:14 02/18/2021 16:24:58 Dysuria 82893058 R30.9 >100,000 gram negative rods, likely e coli although culture not back yet Add cipro 250 mg BID x 3 days monitor for improvemen t in symptoms [id number] [address] [place] [address] 02/17/2021 09:06:53 02/20/2021 14:44:12 Dysuria 82766209 R30.9 completed course of cipro 250 mg BID x 3 days improved Insomnia 400368348 F51.0 9 increase melatonin to 10 mg qhs monitor for improvemen t in sleep [id number] ANDREY PURVIS [address] [place] [address] 02/23/2021 14:22:41 02/27/2021 10:56:00 Dysuria 05709709 R30.9 s/p abx resolved Insomnia 104526045 F51.0 9 sleeping well melatonin 10 mg qhs Fracture o f neck of femur 7430894 S72.002A improving PT/OT to continue change oxycodone to 2.5-5 mg to q 8 hours PRN-would like to taper off soon as she is 3 weeks out from surgery APAP as needed Post-herpe tic polyneuropathy 42278829 B02.23 gabapentin 900 mg BID monitor pain, may increase if she still has pain once oxycodone is stopped Chronic ki dney disease stage 3 403478765 N18.31 Continue to avoid nephrotoxi c meds as able Monitor labs, obtain BMP tomorrow Hypothyroidism 42543034 E03.8 Continue levothyrox ine 75 mcg qd for now add TSH and free T4 tomorrow Depressive disorder 3548 9007 F32.89 consult psych Continue wellbutrin ER 300 mg qd and cymbalta 60 mg qd. Monitor mood. Vitamin D deficiency 347 31789 E56.8 vitamin D 1000 units daily [id number] [place] [address] 02/25/2021 12:32:57 02/27/2021 12:41:58 Depressive disorder 78181498 F32.89 add remeron 15 mg qhs, monitor need to increaseCo ntinue wellbutrin ER 300 mg qd and cymbalta 60 mg qd.psych consult if not already done [id number] [place] [address] 03/02/2021 09:26:10 03/04/2021 14:08:28 Pain in left knee 2570086752 59937 M25.562 exam benign, no imaging warrantedc ontinue PT/OT as ableadd ice pack as needed throughout the daysee HPI about oxycodone, decrease to BID PRN [id number] ANDREY PURVIS [address] [place] [address] 03/05/2021 10:10:25 03/18/2021 12:39:52 Pain in left knee 7208725969 93367 M25.562 resovled Depressive disorder 3548 9007 F32.89 continue remeron 15 mg qhs, monitor need to increase outptConti nue wellbutrin ER 300 mg qd and cymbalta 60 mg qd.psych consult outpt Insomnia 290170081 F51.0 9 melatonin 10 mg qhsremeron 15 mg qhs Fracture o f neck of femur 3829350 S72.002A improvedch priyank oxycodone to 2.5-5 mg to q 8 hours PRNshould stop this at homeAPAP as needed Post-herpe tic polyneuropathy 34031764 B02.23 gabapentin 900 mg BID Chronic ki dney disease stage 3 064626045 N18.31 Continue to avoid nephrotoxi c meds as able Monitor labs outpt Hypothyroidism 22265647 E03.8 Continue levothyrox ine 75 mcg qd for nowmonitor t TSH, elevated inpatient Vitamin D deficiency 347 00009 E56.8 vitamin D 1000 units daily [id number] [place] [address] 01/25/2024 11:11:11 01/26/2024 13:58:31 Obstipation 786084021 K59.00 -chronic colostomym onitor bowels Squamous c ell carcinoma of tongue 201927666 C02.9 See HPI-all meds and nutrition via G tube-will need UNDERGROUND MINE SUPERINTENDENT eval-Stric t NPO pending UNDERGROUND MINE SUPERINTENDENT eval-oral suction prn for secretions -use lidocaine soln 15 ml every 4 hours prn for mouth pain-tylen ol 650 mg every 6 hours as needed for mild to moderate pain-dilau did 2 mg every 4 hours prn for moderate to sevre pain-wean narcotic pain medication as tolerated- follow up on 02/[address] [facility] Depressive disorder 6248 9006 F32.89 Consider adjustment disorder.- Effexor 50 mg bid-contin ue wellbutrin 75 mg bid-will place psych consult Hypothyroidism 70600572 E03.8 -Continue levothyrox ine 50 mcg daily-repe at TSH in 1 month (02/23) (TSH elevated to 19 on day of discharge) Post-herpe tic polyneuropathy 64538478 B02.23 -gabapenti n 900 mg BIDmonitor pain control Chronic ki dney disease stage 3 996508083 N18.31 -avoid nephrotoxi c meds as able-monit or kidney function [id number] ANDREY PURVIS [address] [place] [address] 01/26/2024 12:58:50 01/27/2024 11:21:34 Squamous cell carcinoma of tongue 858728374 C02.9 now with worsening pain and concern for infectiona dd keflex 500 mg QID x 7 daysmonito r site for improvemen tcontinue dilaudid, may give extra dose now if needed [id number] MD MAMIE Cardenas [address] [place] [address] 01/28/2024 12:15:32 02/10/2024 16:07:46 Squamous cell carcinoma of tongue 687213734 C02.8 see HPInow s/p partial glossectom ynow strict NPImonitor for pain control with goal off opioid in 1 week from admitfollo w surgery recs and update with concernsf/ u with oncology and ENT in placemonit or incision site for infection Obstipation 928399562 K5 9.09 hx ostomy s/p severe obstipatio n Depressive disorder 3548 9007 F32.89 eval by psych in hospital with dx adjustment disorderfe lt able to make own medical decisionsc ontinue out patient medpsych to eval at facility Hypothyroidism 65213895 E03.8 synthroid elevated in hospitalre peat at facilitymo nitor need to titrate dose Post-herpe tic polyneuropathy 65066412 B02.23 carrying dxcontinue gabapentin monitor for effect Chronic ki dney disease stage 3 196849473 N18.31 carrying dxmonitor renal functionav oid nephrotoxi c meds as ablenephro consult prn Anemia due to blood loss 520993267 D50.0 post op anemia required tx with 2 units pRBCmonito r cbc and need for further tx Asthenia 12006075 R53.1 PT OT eval and treatmonit or fall risk and need for increased support in community Contractur e of joint of left hand 6883260609 32123 M24.542 chronic contractur etherapy to eval splint [id number] ANDREY PURVIS [address] [place] [address] 01/31/2024 13:28:50 02/10/2024 16:20:50 Squamous cell carcinoma of tongue 887610199 C02.9 started antibiotic s for concern of infection to incision site. She continues to have pain. Redness noted but no drainage.- continue keflex 500 mg QID x 7 days to end 02/01-monit or site for improvemen t-continue dilaudid for pain control-re felipe NPO - UNDERGROUND MINE SUPERINTENDENT eval pending Depressive disorder 6933 9001 F32.89 Consider adjustment disorder.- Effexor 50 mg bid-contin ue wellbutrin 75 mg bid-will place psych consult Post-herpe tic polyneuropathy 41713214 B02.23 -gabapenti n 900 mg BID -monitor pain control [id number] MD MAMIE Gonzalez [address] [place] [address] 02/02/2024 15:04:23 02/13/2024 12:15:22 Intertrigo 56054265 R21 Most likely candidal, although it doesn't look classic.Wi ll start nystatin cream BID and reeval for healing. Urge incon tinence of urine 10816226 N39.41 May benefit from antispasmo dic.Will discuss further next time DIALS SUPERVISOR sees her. [id number] ANDREY PURVIS [address] [place] [address] 02/03/2024 06:03:30 02/13/2024 13:48:36 Intertrigo 72324658 R21 started on nystatin cream BID and reeval for healing.-c ontinue nystatin BID-keep area clean and dry-incont inence care Urge incon tinence of urine 28556713 N39.41 Incontinen ce occurring overnight, not during the day. New issue-try bedside commode for night time-regul alexander scheduled toileting to empty bladder-wi ll continue to monitor-ca n consider antispasmo dic Squamous c ell carcinoma of tongue 785644042 C02.9 Completed keflex for concern of infection to neck incision site. She continues to have some pain and stiffness. erythema and edema much improved. No new drainage or odor noted.-mon itor site for improvemen t-continue dilaudid for pain control-wo rking with UNDERGROUND MINE SUPERINTENDENT-tolera ting soft diet with thickened liquids - appetite improvingw ill call ENT today to let them know there is no emergent visit needed and she can wait until february 12 [place] [address] 02/08/2024 11:40:46 02/13/2024 15:34:53 Squamous cell carcinoma of tongue 995197371 C02.9 Completed keflex. Concern for incisional infection resolved.T ongue less swollen, healing well, speech is improving- monitor site-wyatt nue dilaudid for pain control-wo rking with UNDERGROUND MINE SUPERINTENDENT-tolera ting pureed diet with thickened liquids - appetite improving- ENT follow up [place] 3 Intertrigo 48991459 R21 started on nystatin powder BID. Rash is starting to improve-co ntinue nystatin powder BID-keep area clean and dry-incont inence care Urge incon tinence of urine 78595302 N39.41 Incontinen ce occurring overnight, not during the day. New issue since coming to rehab.-con tinue bedside commode for night time-regul alexander scheduled toileting to empty bladder-av oid liquids before bed-will continue to monitor-ca n consider antispasmo dic [id number] [place] [address] 02/15/2024 09:12:00 02/20/2024 12:27:23 Squamous cell carcinoma of tongue 532740068 C02.9 Tongue less swollen, less pain, healing well, speech is improvingS taples removed monday 02/12 to neck incision-m onitor tongue and neck site-still requiring daily doses of dilaudid -consider titrating down-UNDERGROUND MINE SUPERINTENDENT following- Dietary following - working to increase po food intake and decrease tube feeds-tole rating pureed diet with thickened liquids - appetite improving- continue tube feeds-ENT follow up [place] 6 Intertrigo 52503045 R21 started on nystatin powder BID. Rash improved.- continue nystatin powder BID-keep area clean and dry-incont inence care Urge incon tinence of urine 11872439 N39.41 Resolved-c ontinue bedside commode for night time-regul alexander scheduled toileting to empty bladder-av oid liquids before bed [id number] [place] [address] 02/21/2024 09:31:50 02/23/2024 15:39:04 Squamous cell carcinoma of tongue 029094963 C02.9 see HPIOral cavity well healing incision of the right tongue.Wel l healed neck, prince out- monitor tongue and neck site- continue dilaudid prn for moderate to severe pain -consider titrating down- now on 50% G-tube and 50% puree by mouth and is tolerating this well-up to 3 meals per day, tube feeds off during day- continue working w/ UNDERGROUND MINE SUPERINTENDENT[place] [facility] [place] [facility] [place] Mar 02 at 1000 Intertrigo 12216951 R21 Rash improved with nystatin powder-con tinue nystatin powder BID-keep area clean and dry-incont inence care Depressive disorder 6287 8182 F32.89 Consider adjustment disorder.- continue Effexor 50 mg bid-contin ue continue wellbutrin 75 mg bid-psych consult prn - denying [id number] ANDREY PURVIS [facility] [place] [address] 03/19/2024 11:25:27 03/28/2024 17:46:20 Squamous cell carcinoma of tongue 717801145 C02.9 see HPIeating all meals- flush to g tube onlytaught how to flush today by nursingVNA to monitorfol low up as needed Depressive disorder 8073 4703 F32.89 Consider adjustment disorder.- continue Effexor 50 mg bid-contin ue continue wellbutrin 75 mg bid Obstipation 826957831 K5 9.00 -chronic colostomy Hypothyroidism 22557704 E03.8 -Continue levothyrox ine 50 mcg daily Post-herpe tic polyneuropathy 21894168 B02.23 -gabapenti n 900 mg BID Chronic ki dney disease stage 3 412238248 N18.31 -avoid nephrotoxi c meds as able Health Concerns Section Related Observation LastModified by Organization Detai ls LastModified Time None Recorded Concern Status LastModified by Organization Details LastModified Time None Recorded Advance Directives Directive N: full code Payers Encounter Date Sequence Insurance Name Policy Number Policy Banks Covered Member ID Banks Member ID Guarantor Name 02/03/2024 1 [place]: [employer] Elaine Mascorro [id number] Elaine Pyrczak 02/03/2024 2 [facility] - MEDICARE ENHANCE (INDEMNITY PLAN) Elaine Pyrczak [id number] Elaine Pyrczak 02/08/2024 1 MEDICARE [place]: [employer] Elaine A Pyrczak [id number] Elaine Pyrczak 02/08/2024 2 [facility] - MEDICARE ENHANCE (INDEMNITY PLAN) Elaine Pyrczak [id number] Elaine Pyrczak 02/15/2024 1 MEDICARE [place]: [employer] Elaine A Pyrczak [id number] Elaine Pyrczak 02/15/2024 2 [facility] - MEDICARE ENHANCE (INDEMNITY PLAN) Elaine Pyrczak [id number] Elaine Pyrczak 02/21/2024 1 MEDICARE B-[place]: [employer] Elaine A Pyrczak [id number] Elaine Pyrczak 02/21/2024 2 [facility] - MEDICARE ENHANCE (INDEMNITY PLAN) Elaine Pyrczak [id number] Elaine Pyrczak 03/19/2024 1 MEDICARE B-[place]: [employer] Elaine A Pyrczak [id number] 0 Elaine Pyrczak 03/19/2024 2 [facility] - MEDICARE ENHANCE (INDEMNITY PLAN) Elaine Pyrczak [id number] Elaine Pyrczak Notes Date Note Type Note Provider Name and Address Organization Details Recorded Time 02/03/2024 text/html This is a 78 yea r old female seen today for acute rounding visit. Patient with a history of colostomy due to severe obstipation (longstanding), CKD stage III, postherpetic neuralgia, hypothyroidism, anxiety/depression who was admitted to the [facility] for failure to thrive in the setting of newly diagnosed tongue cancer.Patient on abx due to concern for infection in incision. Her surgeon was updated on this yesterday and feels she needs to be seen right away to eval incision. There was consideration to send her to the ED and then have her transferred to [place] as we do not have transportation here, but at this time her symptoms seem under control. She has follow up in [place] on February 12. She is working with [employer], she did well with yogurt yesterday. Seen and evaluated this morning. She was sitting up at the side of the bed eating her breakfast. She tells me her appetite is returning and she is doing well with thickened liquids and soft foods. She continues to work with [employer]. In regards to her incision it continues to improve. She has some pain to the area, but mostly reports stiffness with movement. The erythema and swelling is improving, no new drainage or odor. In regards to the urge incontinence. She tells me this is new since coming to rehab. She knows when she has to urinate, and rings, but staff cant always come help her in time. Discussed regular toileting before bed and use of bedside commode with supervision for night time. ANDREY SIMS [address] [place] [address], [address], [place], [address], [facility] [employer] 02/03/2024 09:57:29 02/08/2024 text/html This is a 78 yea r old female seen today for acute rounding visit. Patient with a history of colostomy due to severe obstipation (longstanding), CKD stage III, postherpetic neuralgia, hypothyroidism, anxiety/depression who was admitted to the [facility] for failure to thrive in the setting of newly diagnosed tongue cancer.Patient on abx due to concern for infection in incision. Her surgeon was updated on this last week and initially wanted to see her right away, but after discussion decided she can wait until her scheduled apt on Feb 12. She has been working with [employer] to advance her diet. Last week she was tolerating thickened liquids and soft foods. Her neck incision has been stiff with some pain, but it is becoming more controlled as healing progresses. She was also having difficulty with urinating, at first this was thought to be urge incontinence, but after discussion with the patient it seems she having difficulty getting to the bathroom on time due to her mobility and requiring staff assistance to ambulate. She was encouraged to avoid liquids before bed and regular scheduled toileting with commode near bedside at night. Seen and evaluated today. Neck incision healing well, no signs of infection, pain improving, but remains stiff hopefully when prince come out that will improve. The incontinence is still an issue at night, commode next to her bedside, but she tells me its just because she is unable to get to it in time because she has to ring for help with her tubes. Her carlos a area rash is getting better from last week with the nystatin powder. ANDREY Kang [facility], [address], [place], [address], [employer] 02/08/2024 11:42:01 02/15/2024 text/html This is a 78 yea r old female seen today for acute rounding visit. Patient with a history of colostomy due to severe obstipation (longstanding), CKD stage III, postherpetic neuralgia, hypothyroidism, anxiety/depression who was admitted to the [facility] for failure to thrive in the setting of newly diagnosed tongue cancer.Patient seen today for acute rounding. She is sitting up in bed eating her breakfast. Her prince to her neck incision were removed Tuesday. Incision is healing well. She says the pain is improving. Her tongue flap looks good. She is talking more clearly. Her appetite is slowly improving. She is working with [employer] and dietary to increase her po food intake and decrease her tube feeds. Per [employer] eating 25-50% of her 2 meals/day. She says her urinary incontinence is resolved and her groin rash is improving with nystatin powder. ANDREY Duran , [address], [place], [address], [employer] 02/15/2024 10:08:44 02/21/2024 text/html This is a 78 yea r old female seen today for 30 day routine rounding visit. Patient with a history of colostomy due to severe obstipation (longstanding), CKD stage III, postherpetic neuralgia, hypothyroidism, anxiety/depression who was admitted to the [facility] for failure to thrive in the setting of newly diagnosed tongue cancer. Patient seen on 02/15 by [facility] who feel she is healing well postoperatively with plans to follow up in 2 weeks with their Multidisciplinary Team for future treatment planning. She was seen and evaluated today sitting up in chair, dressed and ready for the day. She looks well and is happy with her progress. Discussed any difficulty with adjustment to her diagnosis and she thinks she is handling it well and is denying need for forensic psychiatrist at this time. She tells me she is up to 3 meals per day with tube feeds only running at night. ANDREY SIMS [address] [facility], [address], [place], [address], [facility] 02/21/2024 11:52:49 03/19/2024 text/html This is a 78 yea r old female seen today for discharge summary visit. Patient with a history of colostomy due to severe obstipation (longstanding), CKD stage III, postherpetic neuralgia, hypothyroidism, anxiety/depression who was admitted to the [facility] for failure to thrive in the setting of newly diagnosed tongue cancer. Patient seen on 02/[address] [facility] who feel she is healing well postoperatively. Her stay recently has been uneventful, she did have a fall today as she was Sleep walking per patient sustained no injury. She has no new concerns at this visit, ok to DC home with meds and services and follow up with onc as scheduled. ANDREY SIMS [address] [facility], [address], [place], [address], [employer] 03/19/2024 11:36:22 OBGyn Episode No OBEpisode recorded.
--- OUTSIDE RECORDS SUMMARY | 2024-10-05 15:03 | XMS_ITS ---
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) (D50.0 - ICD-10-CM) ACTIVE 01/24/2021 CHRONIC KIDNEY DISEASE, STAG E 3 UNSPECIFIED (N18.30 - ICD-10-CM) ACTIVE 01/24/2021 ANXIETY DISORDER, UNSPECIFIED (F41.9 - ICD-10-CM) ACTI VE 01/24/2021 MAJOR DEPRESSIVE DISORDER, R ECURRENT, UNSPECIFIED (F33.9 - ICD-10-CM) ACTIVE 01/24/2021 HYPOTHYROIDISM, UNSPECIFIED (E03.9 - ICD-10-CM) ACTIVE 01/24/2021 MILD COGNITIVE IMPAIRMENT OF UNCERTAIN OR UNKNOWN ETIOLOGY (G31.84 - ICD-10-CM) ACTIVE 01/24/2021 ENCOUNTER FOR ATTENTION TO GASTROSTOMY (Z43.1 - ICD-10 -CM) ACTIVE 01/24/2021 POSTHERPETIC TRIGEMINAL NEURALGIA (B02.22 - ICD-10-CM) ACTIVE 01/24/2021 Encounters Encounter Performer Performer Role Encounter Diagnoses Location Date Discharge - Discharged / Transferred to - [facility] 01/24/2021 05:37 pm EDT - 01/29/2021 11:45 am EDT Immunizations Vaccine Date SARS-COV-2 (COVID-19) 01/07/2021 12:00 a m EDT SARS-COV-2 (COVID-19) 12/13/2020 12:00 a m EDT Social History
[2024-10-05 15:24] LABS: Free T4 (Free Thyroxine) 0.93 ng/dL (0.71-1.85); Thyroid Stimulating Hormone 3.84 uIU/mL (0.32-4.0)
== END 2024-10-05 13:18 | disposition home or self-care (01) ==
LOC: HO.LAB 13:17
PROVIDERS: PCP Internal Medicine; Visit Provider Internal Medicine
DX: E03.9 Hypothyroidism, unspecified (principal)
CPT/HCPCS: 36415; 84439; 84443

== ENCOUNTER 2025-03-07 15:26 | Outpatient (AMB) | payer MEDICARE, OTHER, SELFPAY ==
--- NOTE | 2025-03-07 15:45 | A.OFFPC_ITS ---
Vital Signs 3 03/07/25 15:47 Height 5 ft 4 in Weight 112 lb 6 oz BMI 19.3 BP 122/70 Blood Pressure Location Lt brachial Position Sitting Pulse 86 Pulse Source Pulse Oximeter Temp 97.1 F Temp Source Temporal Artery Scan Pulse Oximetry (%) 98 Oxygen Delivery Method Room Air Intake Visit Reasons: [facility] [place] 02/25 Obstetrics Gynecology Physician Required: No Accompanied by: Self / Same As Patient Allergies simvastatin Adverse Reaction (Intermediate, Verified 03/07/25 15:52) Stomach Upset metoclopramide (Reglan) Adverse Reaction (Unknown, Verified 03/07/25 15:52) restless leg Medication List - Last Reconciled 03/07/25 by Rosa Boudreaux PA-C blood pressure monitor (Blood Pressure Kit) As directed duloxetine 60 mg PO DAILY 30 days [FINGER SPLINTS 3rd, 4th and 5th flexion contractures] gabapentin 600 mg (2 x 300 mg) PO TID 30 days hydroxyzine HCl 25 mg PO BEDTIME levothyroxine 50 mcg PO DAILY 90 days lidocaine HCl 2% (Lidocaine Viscous) 1 appl mucous membrane BID PRN nystatin 5 mL PO TID 7 days nystatin 1 appl topical BID transparent dressings (Tegaderm Frame Style) As directed venlafaxine 100 mg PO DAILY Tobacco use date assessed: 03/22/24 Fall risk assessment: No Falls in past year Last assessed Fall Risk: 03/07/25 Dental Screening Dental Screen Date: 03/22/24 [facility] [place] 02/25 2 HPI0 Details 79 year old female with past medical his tory of CAD, depression, chronic pain syndrome, hypothyroid, osteoporosis, hypercholesterolemia, memory loss, hypertension, tongue cancer last seen 07/[address] Mckeon coming in for follow up. In review of the notes, patient was admitted to [facility] for bright revision glossectomy, left partial glossectomy and submental flap revision for recurrent right tongue squamous cell carcinoma. Patient was discharged home with instructions to change occlusive tracheostomy dressing twice daily and dressings can be discontinued once the stoma is completely closed. Presenting with ongoing issues related to her history of tongue cancer and associated complications. The patient was diagnosed with a malignant neoplasm of the tongue a year ago, which required surgical intervention. The initial tumor was excised, and the patient was declared cancer-free in August, but a recurrence was noted in December, necessitating further surgery. Post-surgery, the patient was on a feeding tube and underwent rehabilitation to regain speech and swallowing functions. The patient reports learning to talk again and is currently on a pureed diet. The patient has experienced nerve pain down the left side for approximately seven years, managed with gabapentin and tramadol during rehabilitation. The patient has a history of shingles, which resulted in hospitalization and contributes to ongoing nerve pain. The patient presented with an aphthous ulcer, likely due to trauma from brushing, and was advised on management strategies. [facility] Medical History Pulmonary nodule History of COVID-19 Personal history of nicotine dependence Chronic pain syndrome Post herpetic neuralgia Hypothyroid Hypercholesterolemia Chronic kidney disease Major depression Surgical History History of abdominal surgery (~2009) History of hysterectomy (~2005) History of hip surgery (~2020) Colostomy in place (~2007) History of pelvic surgery (~2006) Family History Father No problems noted. Mother No problems noted. Social History Housing: House Alcohol intake: never Patient Tobacco Use Status: Former Tobacco user Tobacco use type: Cigarette Years Smoked: (onset 31yo, 3/4ppd x 41yrs, 30pyh, quit 2017) e-Cigarette/Vaping Use: Never Used Second Hand Smoke Exposure: No service: No Current occupational status: retired Current occupation: right hand dominant Cognitive needs: No Hearing needs: No Vision needs: Yes Questionnaire PHQ-9 Over the last 2 weeks, how often have you been bothered by any of the following problems? 1. Little interest or pleasure in doing things: not at all 2. Feeling down, depressed, or hopeless: not at all 3. Trouble falling or staying asleep, or sleeping too much: not at all 4. Feeling tired or having little energy: not at all 5. Poor appetite or overeating: not at all 6. Feeling bad about yourself - or that you are a failure or have let yourself or your family down: not at all 7. Trouble concentrating on things, such as reading the newspaper or watching television: not at all 8. Moving or speaking so slowly that other people could have noticed. Or the opposite - being so fidgety or restless that you have been moving around a lot more than usual: not at all 9. Thoughts that you would be better off or of hurting yourself in some way: not at all Total score: 0 Depression Screening Interpretation: Negative Depression Screening Done: Yes 08169 - PHQ-9 Billing: Yes Source: Developed by Drs. Pierce Miranda, Cherie Muñiz, Singh Goins and colleagues, with an educational barrington from [employer]. Thrive Questionnaire Date Thrive assessed: 03/05/25 I am a: Patient What is your living situation today?: I have a steady place to live Within the past 12 months, did the food you bought not last and you didn't have the money to get more?: Never true Within the past 12 months, did you worry whether your food would run out before you got money to buy more?: Never true Do you have trouble paying for medicines?: No Do you have trouble getting transportation to medical appointments?: Yes Do you have trouble paying your heating and electricity bill?: No Do you have trouble taking care of your child, family member or friend?: No Do you have trouble with day-to-day activities such as bathing, preparing meals, shopping, managing finances, etc.?: No Are you currently unemployed and looking for a job?: No Are you interested in more education?: No Please select the resources that you would like help with: None THRIVE Score: 1 AUDIT C Alcohol Use Questionnaire (AUDIT-C) 1. How often do you have a drink containing alcohol?: Never 3. How often do you have six or more drinks on one occasion?: Never Total Score: 0 MANJU-7 AMB Questionnaire MANJU-7 Date MANJU - 7 assessed: 03/07/25 Feeling nervous, anxious, or on edge: 0 = Not at all Not being able to stop or control worryin = Not at all Worrying too much about different things: 0 = Not at all Trouble relaxin = Not at all Being so restless that it is hard to sit still: 0 = Not at all Becoming easily annoyed or irritable: 0 = Not at all Feeling afraid as if something awful might happen: 0 = Not at all Total MANJU-7 score (0-4 normal; 5-9 mild; 10-14 moderate; 15-21 severe): 0 Source: Developed by Drs. Pierce Miranda, Cherie Muñiz, Singh Goins and colleagues, with an educational barrington from [employer]. MANJU-7 Assessment Billing MANJU-7 Assessment Tool: MANJU-7 Assessment 13126 Review of Systems Const Denies body aches, Denies chills, Denies fever(s), Denies headache(s) and Denies poor appetite Eyes Reports no additional complaints ENT Denies dizziness and Denies headache(s) Card Denies chest pain, Denies syncope, Denies edema, Denies irregular heart rhythm, Denies lightheadedness and Denies dyspnea Resp Denies cough and Denies dyspnea GI Denies abdominal pain, Denies constipation, Denies diarrhea, Denies nausea and Denies vomiting Reports no additional complaints Musc Reports no additional complaints and Denies abnormal gait Skin/Breast Reports system reviewed and no additional complaints, except as documented Neuro Denies abnormal gait, Denies dizziness, Denies syncope and Denies headache(s) Psych Reports no additional complaints Physical exam (Primary Care) Vital Signs: Last Vital Signs Temp 97.1 F 03/07/25 15:47 Pulse 86 03/07/25 15:47 BP 122/70 03/07/25 15:47 Pulse Ox 98 03/07/25 15:47 Oxygen Delivery Method Room Air 03/07/25 15:47 BMI result Body Mass Index 19.3 Tobacco/Smoking Status: Tobacco use Status Tobacco use date assessed 03/22/24 03/07/25 15:51 Patient Tobacco Use Status Former Tobacco user 03/07/25 15:51 Tobacco use type Cigarette 03/07/25 15:51 e-Cigarette/Vaping Use Never Used 03/07/25 15:51 PHQ-9: PHQ-9 Score PHQ-9: Total score 0 03/08/25 08:18 Depression Screening Interpretation: Negative Thrive Assessment: Date of Thrive Assessment Date Thrive assessed 03/05/25 03/07/25 15:51 Const General: cooperative, healthy appearing, comfortable and no acute distress Orientation/consciousness: patient oriented x3 HENNC Head: Yes normocephalic Ears: hearing grossly normal bilaterally General nose exam: Normal external nose present Mouth/tongue images: 2 1. Abscess ulcer of the right lower gumline Eyes General: appearance normal, both eyes and all related structures Conjunctivae: conjunctivae normal Neck Neck: Yes full ROM and Yes no lymphadenopathy Resp Effort & Inspection: normal respiratory effort Auscultation: clear to auscultation bilaterally, no crackles, no rales, no rhonchi and no wheezes Cardio Rate: regular rate Rhythm: regular rhythm Skin General skin exam: no rashes or lesions noted Neuro General: patient oriented x3 Gait exam (Neuro): Normal gait present Extrem General: Yes normal to inspection, Yes full ROM and No edema Psych Affect: normal affect Attitude: cooperative Insight: Good insight present (Psych) Judgement: Good judgement present (Psych) Coding Level of Care Code Est Pt Level 3 (67670) Diagnoses Primary hypertension I10 Hypertension type: primary hypertension Hypercholesterolemia E78.00 Tongue cancer C02.9 Aphthous ulcer of mouth K12.0 Post herpetic neuralgia B02.29 Additional Codes MANJU-7 Assessment Billing - MANJU-7 Assessment Tool: MANJU-7 Assessment 74804 ([id number]) PHQ-9 - 84897 - PHQ-9 Billing: Yes ([id number]) Assessment & Plan Assessment & Plan (1) Hypertension: Code(s): I10 - Essential (primary) hypertension Category: Medical Qualifiers: Hypertension type: primary hypertension Qualified Code(s): I10 - Essential (primary) hypertension Plan: Continue on current blood pressure medication. Avoid salt intake and encourage healthy diet and regular exercise. (2) Hypercholesterolemia: Code(s): E78.00 - Pure hypercholesterolemia, unspecified Category: Medical Plan: Avoid foods that are high in cholesterol such as red meat, fried foods, eggs and baked goods. Triglyceride goal of less than 150 and LDL goal of less than 70. 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 I did advise her to reach out to reschedule this appointment as well as reach out to schedule an appointment with her oncologist as she has not seen them in quite some time. At this time there is no evidence of infection of the mouth and patient is doing generally well postoperatively. Diet has resumed to almost normal however she does continue to puree most food (4) Aphthous ulcer of mouth: Code(s): K12.0 - Recurrent oral aphthae Category: Medical Plan: Patient having an aphthous ulcer the right lower gumline which she attributes to tooth brush trauma. Recommend saltwater rinses. I reviewed with patient red flag symptoms and when to present for re-evaluation given her history. (5) Post herpetic neuralgia: Code(s): B02.29 - Other postherpetic nervous system involvement Category: Medical Plan: Patient has a history of post herpetic neuralgia that affects the left leg and causing significant discomfort and which he is requesting tramadol. Per Dr. Mckeon tramadol is not recommended and rather increase nighttime gabapentin to 800. Plan The patient will need to reschedule her follow-up appointment with her surgeon in [place] to address ongoing issues related to her tongue cancer and jaw pain. It is important to determine the next steps in her care, whether it involves continued follow-ups in [place] or transitioning to local care. The patient was advised to consider telehealth options if transportation remains a barrier. Regarding her nerve pain, the patient expressed interest in continuing tramadol, which was effective during her rehabilitation. However, due to the potential for dependence, the use of tramadol for chronic pain management is not preferred. The patient was informed that the decision to continue tramadol would be discussed with Dr. Mckeon, her primary care provider, to ensure a safe and effective pain management plan. Dr. Mckeon recommended against the use of Tramadol and advised instead to increase her nighttime gabapentin. The patient was advised on managing her aphthous ulcer with salt water rinses and avoiding irritants such as citrus and sour foods. If the ulcer does not resolve or worsens, further evaluation by her surgeon may be necessary. Additionally, the patient was reminded to maintain regular follow-ups to monitor her overall health and address any new concerns that may arise. This note was constructed using voice recognition software. While every effort has been made to ensure accuracy and certified medical aide, still areas may have been included sometimes these areas may affect the content or meeting of the given symptoms. Total time spent caring for the patient today was 30 minutes. This includes time spent before the visit reviewing the chart, time spent during the visit, and time spent after the visit and documentation. Patient was informed and verbally consented to the use of an ambient scribe for clinic note documentation during this visit. Medications: New 2 venlafaxine 150 mg PO DAILY
[2025-03-07 15:47] VITALS: BP 122/70; PULSE 86; TEMP 36.2; O2SAT 98; BMI 19.3
== END 2025-03-07 16:20 | disposition home or self-care (01) ==
LOC: HO.HMCH 15:26
PROVIDERS: PCP Internal Medicine
DX: I10 Essential (primary) hypertension (principal); E78.00 Pure hypercholesterolemia, unspecified; C02.9 Malignant neoplasm of tongue, unspecified; K12.0 Recurrent oral aphthae; B02.29 Other postherpetic nervous system involvement

== ENCOUNTER → 2025-03-07 15:26 | Outpatient (BNVA) | payer MEDICARE, OTHER, SELFPAY | PROVIDERS: PCP Internal Medicine | DX: I10 Essential (primary) hypertension (principal); E78.00 Pure hypercholesterolemia, unspecified; C02.9 Malignant neoplasm of tongue, unspecified; K12.0 Recurrent oral aphthae; B02.29 Other postherpetic nervous system involvement | CPT/HCPCS: 96127; 99212 ==